=== PATIENT | female | born 1960 | race Caucasian/White ===

== ENCOUNTER → 2016-09-05 | Outpatient (CLI) | payer BC ==
[2016-09-05 19:43] LABS: ALT 37 U/L (9-52); AST 25 U/L (14-36); Alkaline Phosphatase 49 U/L (38-126); Anion Gap 10 mmol/L; Blood Urea Nitrogen 16 mg/dL (7-17); Calcium 10.2 mg/dL (8.4-10.2); Carbon Dioxide 25 mmol/L (22-30); Chloride 105 mmol/L (98-107); Cholesterol 155 mg/dL (<200); Glucose 95 mg/dL (74-99); HDL Cholesterol 45 mg/dL (40-60); Non-African American GFR(MDRD) >60 (>60 ml/min/1.73 sqM); Potassium 4.4 mmol/L (3.5-5.1); Sodium 140 mmol/L (137-145); Total Bilirubin 0.5 mg/dL (0.2-1.3); Total Protein 7.1 g/dL (6.3-8.2); Triglycerides 213 mg/dL (<150)
[2016-09-05 22:43] LABS: Basophils % (A) 1 %; CH 27.4; CHCM 32.5; Eosinophils # (A) 0.2 k/uL (0-0.7); Eosinophils % (A) 4 %; HCT 36.2 % (34.0-46.0); HDW 2.87; HGB 11.9 gm/dL (11.4-16.0); Luc # (Auto) 0.15; Luc % (Auto) 3; Lymphocytes # (A) 1.4 k/uL (1.0-4.8); Lymphocytes % (A) 29 %; MCV 84.7 fL (80.0-100.0); Monocytes # (A) 0.3 k/uL (0-1.0); Monocytes % (A) 6 %; Neutrophils # (A) 2.8 k/uL (1.3-7.7); Neutrophils % (A) 58 %; RBC 4.27 m/uL (3.80-5.40); RDW 13.9 % (11.5-15.5); WBC 4.9 k/uL (3.8-10.6); WBC (Perox) 5.37
== END ==
LOC: MMGSC 10:24
PROVIDERS: ATTEND Family Medicine
DX: E78.00 Pure hypercholesterolemia, unspecified (principal); I10 Essential (primary) hypertension
CPT/HCPCS: 36415; 80053; 80061; 84439; 84443; 85025

== ENCOUNTER → 2016-10-02 | Outpatient (CLI) | payer BC | LOC: MMGSC 16:17 | PROVIDERS: ATTEND Family Medicine | DX: F31.9 Bipolar disorder, unspecified (principal) | CPT/HCPCS: 36415; 80178 ==

== ENCOUNTER → 2016-11-11 | Outpatient (CLI) | payer BC | LOC: MMGSC 10:37 | PROVIDERS: ATTEND Family Medicine | DX: N39.0 Urinary tract infection, site not specified (principal) | CPT/HCPCS: 87077; 87086; 87186 ==

== ENCOUNTER → 2017-05-22 | Outpatient (CLI) | payer BC ==
[2017-05-24 15:40] LABS: C. trachomatis,PCR Negative (Neg,Equiv); Chlamydia trachomatis Source Genital; N. gonorrhoeae,PCR Negative (Neg,Equiv); Neisseria Source Genital
== END | disposition home or self-care (01) ==
LOC: MMGSC 13:45
PROVIDERS: ATTEND Family Medicine
DX: N39.0 Urinary tract infection, site not specified (principal); L29.0 Pruritus ani
CPT/HCPCS: 87070; 87086; 87205; 87252; 87491; 87496; 87498; 87529; 87591; 87798

== ENCOUNTER 2017-06-13 08:36 | Day surgery (SDC) | payer BC ==
[2017-06-12 09:20] VITALS: BMI 33.3
[~2017-06-13 08:36] MED LIST: LACTATED RINGERS 1,000 ML IV SCH
[2017-06-13 09:23] VITALS: RESP 16; TEMP 98.2
[2017-06-13] MEDS ORDERED: LIDOCAINE 1% 20 ML VIAL (10MG/ML) FOR IV START INTRADERMA ONE (09:40)
--- NOTE | 2017-06-13 10:40 | P.PCN ---
Date of Procedure: 06/13/17 Procedure(s) Performed: BRIEF HISTORY: Patient is a 57-year-old white female scheduled for an elective upper endoscopy as a part of evaluation of her GERD symptoms on and off for the last several months duration. For an PROCEDURE PERFORMED: Esophagogastroduodenoscopy with biopsy. PREOPERATIVE DIAGNOSIS: GERD of several months duration. IV sedation per anesthesia. PROCEDURE: After informed consent was obtained, the patient was brought into the endoscopy unit. IV sedation was administered by Anesthesia under continuous monitoring. Initially the Olympus GIF-140 video endoscope was inserted into the mouth. Esophagus intubated without any difficulty. It was gradually advanced into the stomach and duodenum and carefully examined. The bulb and the second part of the duodenum appeared normal. The scope at this time was withdrawn to the stomach, adequately insufflated with air, and upon careful examination, mucosa of the antrum, had scattered erosions and biopsies were done from this area. The body appeared normal. In the cardia of the stomach there was a 1.5 cm polyp noted and multiple biopsies were done from this area. The scope was then withdrawn into the esophagus. The GE junction was located at 39 cm from the incisors. The esophagus appeared normal. There were no erosions or ulcerations seen and the patient tolerated the procedure well. IMPRESSION: 1. 1.5 cm polyp in the cardia of the stomach status post multiple biopsies. 2. Mild antral gastritis. 3. No evidence of esophagitis or Caal's esophagus RECOMMENDATIONS: The findings of this examination were discussed with the patient as well as a family. She was advised to follow with the biopsy results. Basal biopsy results will plan a repeat upper endoscopy with the endoscopic polypectomy. She will be seen in office in 2 weeks..
[2017-06-13 10:47] VITALS: BP 104/58; PULSE 69
== END 2017-06-13 11:17 | disposition home or self-care (01) ==
LOC: ORWHC2ENDO 08:36
PROVIDERS: ATTEND Internal Medicine Gastroenterology
DX: K29.50 Unspecified chronic gastritis without bleeding (principal); K31.7 Polyp of stomach and duodenum; K21.9 Gastro-esophageal reflux disease without esophagitis; I10 Essential (primary) hypertension; E78.5 Hyperlipidemia, unspecified; G47.33 Obstructive sleep apnea (adult) (pediatric); G25.81 Restless legs syndrome; Z79.899 Other long term (current) drug therapy
CPT/HCPCS: 43239; 88305; 88342

== ENCOUNTER → 2017-06-18 | Outpatient (CLI) | payer BC | END | disposition home or self-care (01) | LOC: MMGSC 13:20 | PROVIDERS: ATTEND Family Medicine | DX: L29.0 Pruritus ani (principal) | CPT/HCPCS: 87172 ==

== ENCOUNTER 2017-12-28 14:52 | Inpatient (IN) | payer BC ==
[2017-12-28] MEDS ORDERED: NITROGLYCERIN OINT 1 INCH/GM PACKET TOPICAL STA (15:01)
[2017-12-28] MEDS ORDERED: NITROGLYCERIN SL TABS 0.4 MG TAB SUBLINGUAL STA (15:01)
[2017-12-28] MEDS ORDERED: ASPIRIN 81 MG PO STA (15:01)
--- NOTE | 2017-12-28 15:03 | ED ---
General Adult HPI - General Chief complaint: Chest Pain Stated complaint: Chest pain Time Seen by Provider: 12/28/17 14:55 Source: patient, RN notes reviewed Mode of arrival: wheelchair Limitations: no limitations - History of Present Illness Initial comments: This is a 57 old female with past medical history significant for high blood pressure bipolar and high cholesterol patient comes in today stating that she's been having intermittent chest pain over the last 3 weeks and the symptoms are worsening. Patient states they were initially short lived but today is been ongoing since 9:00 this morning. Patient states the pain radiates up to both sides of her neck and into her upper back. Patient states she's also short of breath diaphoretic and mildly nauseated. Patient denies any episodes of vomiting. Patient denies any abdominal pain patient denies any diarrhea recently. Patient denies any recent fever chills or cough. Patient denies headache patient denies any numbness or weakness. Patient denies any lightheadedness or dizziness. Patient denies any swelling to the legs or calf tenderness. Patient denies any smoking history - Related Data Home Medications Medication Instructions Recorded Confirmed LORazepam [Ativan] 0.5 mg PO BID 06/12/17 12/28/17 Lisinopril-Hctz 20-25 mg 1 tab PO DAILY 06/12/17 12/28/17 [Zestoretic 20-25] [place] Carbonate 300 mg PO BID 06/12/17 12/28/17 buPROPion HCL [Wellbutrin SR] 150 mg PO BID 06/12/17 12/28/17 rOPINIRole HCL [Requip] 1 mg PO HS 06/12/17 12/28/17 Fenofibrate Nanocrystallized 145 mg PO DAILY 12/28/17 12/28/17 [Fenofibrate] Iron(Unknown) 1 tab PO Q48H 12/28/17 12/28/17 Multivitamins, Thera [Multivitamin 1 tab PO DAILY 12/28/17 12/28/17 (formulary)] Verapamil HCl [Verapamil ER] 120 mg PO DAILY 12/28/17 12/28/17 Allergies Allergy/AdvReac Type Severity Reaction Status Date / Time No Known Allergies Allergy Verified 12/28/17 16:01 Review of Systems ROS Statement: Those systems with pertinent positive or pertinent negative responses have been documented in the HPI. ROS Other: All systems not noted in ROS Statement are negative. Past Medical History Past Medical History: GERD/Reflux, Hyperlipidemia, Hypertension, Sleep Apnea/ CPAP/BIPAP Additional Past Medical History / Comment(s): restless leg History of Any Multi-Drug Resistant Organisms: None Reported Past Surgical History: Back Surgery, Bladder Surgery, Tubal Ligation Additional Past Surgical History / Comment(s): bladder sling, colonoscopy Past Anesthesia/Blood Transfusion Reactions: No Reported Reaction Past Psychological History: Anxiety, Bipolar Smoking Status: Never smoker Past Alcohol Use History: None Reported Past Drug Use History: None Reported - Past Family History Mother Family Medical History: Cancer Additional Family Medical History / Comment(s): lung, colon Sister(s) Family Medical History: Cancer Additional Family Medical History / Comment(s): brain General Exam - General Exam Comments Initial Comments: GENERAL: Patient is well-developed and well-nourished. Patient is nontoxic and well- hydrated and is in mild distress. ENT: Neck is soft and supple. No significant lymphadenopathy is noted. Oropharynx is clear. Moist mucous membranes. EYES: The sclera were anicteric and conjunctiva were pink and moist. Extraocular movements were intact and pupils were equal round and reactive to light. Eyelids were unremarkable. PULMONARY: Unlabored respirations. Good breath sounds bilaterally. No audible rales rhonchi or wheezing was noted. CARDIOVASCULAR: There is a regular rate and rhythm without any murmurs gallops or rubs. ABDOMEN: Soft and nontender with normal bowel sounds. No palpable organomegaly was noted. There is no palpable pulsatile mass. SKIN: Skin is clear with no lesions or rashes and otherwise unremarkable. NEUROLOGIC: Patient is alert and oriented x3. Cranial nerves II through XII are grossly intact. Motor and sensory are also intact. Normal speech, volume and content. Symmetrical smile. MUSCULOSKELETAL: Normal extremities with adequate strength and full range of motion. No lower extremity swelling or edema. No calf tenderness. LYMPHATICS: No significant lymphadenopathy is noted PSYCHIATRIC: Normal psychiatric evaluation. Normal interpersonal interactions appears functionally intact in deals appropriately with others. No signs of depression. No signs of anxiety. Limitations: no limitations Course Vital Signs 12/28/17 12/28/17 12/28/17 14:54 15:13 15:30 Temperature 98.3 F Pulse Rate 89 84 77 Respiratory 18 16 16 Rate Blood Pressure 174/83 182/84 129/60 O2 Sat by Pulse 99 99 98 Oximetry Medical Decision Making - Medical Decision Making EKG shows normal sinus rhythm at 83 bpm DC interval is 138 QRS 92 QT interval is 380 QTC is 455. Patient's EKG shows no ST segment elevation or depression or T wave abnormalities are noted. Chest x-ray shows no acute normalities. Patient's troponin came back mildly elevated. started the patient heparin bolus and heparin drip. Spoke with Dr. Mcdonald she agreed to admit the patient admitted the patient a wrote admitting orders consult cardiology. I continued heparin and aspirin Nitropaste on the floor. - Lab Data Result diagrams: 12/28/17 15:08 12/28/17 15:08 Lab Results 12/28/17 12/28/17 12/28/17 Range/Units 15:08 15:08 15:08 WBC 4.4 (3.8-10.6) k/uL RBC 4.18 (3.80-5.40) m/uL Hgb 11.4 (11.4-16.0) gm/dL Hct 34.4 (34.0-46.0) % MCV 82.4 (80.0-100.0) fL MCH 27.4 (25.0-35.0) pg MCHC 33.2 (31.0-37.0) g/dL RDW 13.5 (11.5-15.5) % Plt Count 351 (150-450) k/uL Neutrophils % 61 % Lymphocytes % 25 % Monocytes % 8 % Eosinophils % 4 % Basophils % 1 % Neutrophils # 2.7 (1.3-7.7) k/uL Lymphocytes # 1.1 (1.0-4.8) k/uL Monocytes # 0.3 (0-1.0) k/uL Eosinophils # 0.2 (0-0.7) k/uL Basophils # 0.0 (0-0.2) k/uL PT (9.0-12.0) sec INR (<1.2) APTT (22.0-30.0) sec Sodium 141 (137-145) mmol/L Potassium 4.3 (3.5-5.1) mmol/L Chloride 110 H (98-107) mmol/L Carbon Dioxide 21 L (22-30) mmol/L Anion Gap 10 mmol/L BUN 13 (7-17) mg/dL Creatinine 0.91 (0.52-1.04) mg/dL Est GFR (CKD-EPI)AfAm 82 (>60 ml/min/1.73 sqM) Est GFR (CKD-EPI)NonAf 71 (>60 ml/min/1.73 sqM) Glucose 172 H (74-99) mg/dL Calcium 9.9 (8.4-10.2) mg/dL Magnesium 1.8 (1.6-2.3) mg/dL Total Bilirubin 0.2 (0.2-1.3) mg/dL AST 34 (14-36) U/L ALT 36 (9-52) U/L Alkaline Phosphatase 44 (38-126) U/L Total Creatine Kinase 128 (30-135) U/L CK-MB (CK-2) 2.7 H* (0.0-2.4) ng/mL CK-MB (CK-2) Rel Index 2.1 Troponin I 0.057 H* (0.000-0.034) ng/mL Total Protein 6.5 (6.3-8.2) g/dL Albumin 4.2 (3.5-5.0) g/dL [place] 0.3 mmol/L 12/28/17 Range/Units 15:08 WBC (3.8-10.6) k/uL RBC (3.80-5.40) m/uL Hgb (11.4-16.0) gm/dL Hct (34.0-46.0) % MCV (80.0-100.0) fL MCH (25.0-35.0) pg MCHC (31.0-37.0) g/dL RDW (11.5-15.5) % Plt Count (150-450) k/uL Neutrophils % % Lymphocytes % % Monocytes % % Eosinophils % % Basophils % % Neutrophils # (1.3-7.7) k/uL Lymphocytes # (1.0-4.8) k/uL Monocytes # (0-1.0) k/uL Eosinophils # (0-0.7) k/uL Basophils # (0-0.2) k/uL PT 10.3 (9.0-12.0) sec INR 1.1 (<1.2) APTT 23.3 (22.0-30.0) sec Sodium (137-145) mmol/L Potassium (3.5-5.1) mmol/L Chloride (98-107) mmol/L Carbon Dioxide (22-30) mmol/L Anion Gap mmol/L BUN (7-17) mg/dL Creatinine (0.52-1.04) mg/dL Est GFR (CKD-EPI)AfAm (>60 ml/min/1.73 sqM) Est GFR (CKD-EPI)NonAf (>60 ml/min/1.73 sqM) Glucose (74-99) mg/dL Calcium (8.4-10.2) mg/dL Magnesium (1.6-2.3) mg/dL Total Bilirubin (0.2-1.3) mg/dL AST (14-36) U/L ALT (9-52) U/L Alkaline Phosphatase (38-126) U/L Total Creatine Kinase (30-135) U/L CK-MB (CK-2) (0.0-2.4) ng/mL CK-MB (CK-2) Rel Index Troponin I (0.000-0.034) ng/mL Total Protein (6.3-8.2) g/dL Albumin (3.5-5.0) g/dL [place] mmol/L Critical Care Time Critical Care Time: Yes Total Critical Care Time: 35 Disposition Clinical Impression: Non-STEMI (non-ST elevated myocardial infarction) Disposition: ADMITTED IP TO THIS HOSP Referrals: Jaye Bloom MD [Primary Care Provider] - 1-2 days Time of Disposition: 16:09
[2017-12-28 15:15] LABS: Basophils % (A) 1 %; Eosinophils # (A) 0.2 k/uL (0-0.7); Eosinophils % (A) 4 %; HCT 34.4 % (34.0-46.0); HGB 11.4 gm/dL (11.4-16.0); Lymphocytes # (A) 1.1 k/uL (1.0-4.8); Lymphocytes % (A) 25 %; MCH 27.4 pg (25.0-35.0); MCHC 33.2 g/dL (31.0-37.0); MCV 82.4 fL (80.0-100.0); Mean Platelet Volume 7.2; Monocytes # (A) 0.3 k/uL (0-1.0); Monocytes % (A) 8 %; Neutrophils # (A) 2.7 k/uL (1.3-7.7); Neutrophils % (A) 61 %; Platelet Count 351 k/uL (150-450); RBC 4.18 m/uL (3.80-5.40); RDW 13.5 % (11.5-15.5); WBC 4.4 k/uL (3.8-10.6)
[2017-12-28 15:23] LABS: INR 1.1 (<1.2); Partial Thromboplastin Time 23.3 sec (22.0-30.0); Prothrombin Time 10.3 sec (9.0-12.0)
[2017-12-28 15:26] LABS: Albumin 4.2 g/dL (3.5-5.0); Calcium 9.9 mg/dL (8.4-10.2); Magnesium 1.8 mg/dL (1.6-2.3); Potassium 4.3 mmol/L (3.5-5.1); Total Bilirubin 0.2 mg/dL (0.2-1.3); Total Protein 6.5 g/dL (6.3-8.2)
[2017-12-28 15:32] LABS: Lithium 0.3 mmol/L
--- NOTE | 2017-12-28 15:37 | XR ---
EXAMINATION TYPE: XR chest 2V DATE OF EXAM: 12/28/2017 COMPARISON: NONE HISTORY: Intermittent chest pain and shortness of breath TECHNIQUE: Frontal and lateral views of the chest are obtained. FINDINGS: Very mild interstitial prominence is seen throughout and cardiac silhouette is upper limit s of normal. There is no focal air space opacity, pleural effusion, or pneumothorax seen. The cardia c silhouette size is within normal limits. The osseous structures are intact. IMPRESSION: Very mild interstitial prominence and upper limits of normal cardiac silhouette size. Fi ndings could relate to mild cardiogenic volume overload or atypical pneumonitis.
[2017-12-28] MEDS ORDERED: HEPARIN SODIUM,PORCINE 5,000 UNIT/ML 1 ML VIAL IV ONE (15:55)
[2017-12-28 16:04] LABS: Creatine Kinase MB 2.7 ng/mL (0.0-2.4); Troponin I 0.057 ng/mL (0.000-0.034)
[2017-12-28] MEDS ORDERED: NITROGLYCERIN SL TABS 0.4 MG TAB SUBLINGUAL PRN (16:13)
[2017-12-28] MEDS: HEPARIN SOD,PORK IN 0.45% NACL 25,000 UNIT in 0.45% NACL 1 500ML.BAG IV SCH (16:36)
--- NOTE | 2017-12-28 20:16 | P.HPIM ---
History of Present Illness H&P Date: 12/28/17 Chief Complaint: Chest pain The patient is a pleasant 57-year-old obese female with a past history of essential hypertension, hyperlipidemia, GERD with chronic gastritis, bipolar disorder and anxiety and RLS who presents to the ER with chief complaints of chest pain. Apparently the patient has been having symptoms of chest pain intermittently for the last 3 weeks, the patient initially attributed her discomfort to having a panic attack and subsequently to GERD but after taking her prescriptions without further relief the patient decided to seek help today. Today in particular the patient noted severe sharp substernal chest discomfort with radiation into the neck bilaterally and occipital area with associated diaphoresis nausea and shortness of air. She reported that her symptoms were relieved by rest. She denies any cough, fever chills or abdominal pain, she denies any lightheadedness presyncope palpitations or lower extremity swelling. In the ER the patient received a conference of workup including a EKG that was normal sinus rhythm with nonspecific ST-T wave abnormality, troponin was noted to be elevated at 0.057, she was started on aspirin and heparin drip and recommended for admission for non-ST elevation [place] Review of Systems Those systems with pertinent positive or pertinent negative responses have been documented in the HPI. ROS Other: All systems not noted in ROS Statement are negative. Past Medical History Past Medical History: GERD/Reflux, Hyperlipidemia, Hypertension, Sleep Apnea/ CPAP/BIPAP Additional Past Medical History / Comment(s): restless leg History of Any Multi-Drug Resistant Organisms: None Reported Past Surgical History: Back Surgery, Bladder Surgery, Tubal Ligation Additional Past Surgical History / Comment(s): bladder sling, colonoscopy Past Anesthesia/Blood Transfusion Reactions: No Reported Reaction Past Psychological History: Anxiety, Bipolar Smoking Status: Never smoker Past Alcohol Use History: None Reported Past Drug Use History: None Reported - Past Family History Mother Family Medical History: Cancer Additional Family Medical History / Comment(s): lung, colon Sister(s) Family Medical History: Cancer Additional Family Medical History / Comment(s): brain Medications and Allergies Home Medications Medication Instructions Recorded Confirmed Type LORazepam [Ativan] 0.5 mg PO TID 06/12/17 12/28/17 History Lisinopril-Hctz 20-25 mg 1 tab PO DAILY 06/12/17 12/28/17 History [Zestoretic 20-25] [place] Carbonate 300 mg PO BID 06/12/17 12/28/17 History buPROPion HCL [Wellbutrin SR] 150 mg PO BID 06/12/17 12/28/17 History rOPINIRole HCL [Requip] 1 mg PO HS 06/12/17 12/28/17 History Fenofibrate Nanocrystallized 145 mg PO DAILY 12/28/17 12/28/17 History [Fenofibrate] Iron(Unknown) 1 tab PO Q48H 12/28/17 12/28/17 History Multivitamins, Thera [Multivitamin 1 tab PO DAILY 12/28/17 12/28/17 History (formulary)] Verapamil HCl [Verapamil ER] 120 mg PO DAILY 12/28/17 12/28/17 History Allergies Allergy/AdvReac Type Severity Reaction Status Date / Time No Known Allergies Allergy Verified 12/28/17 16:01 Physical Exam Vitals: Vital Signs Temp Pulse Resp BP Pulse Ox 12/28/17 19:18 74 16 132/60 99 12/28/17 16:43 78 16 125/58 100 12/28/17 15:30 77 16 129/60 98 12/28/17 15:13 84 16 182/84 99 12/28/17 14:54 98.3 F 89 18 174/83 99 Intake and Output 12/28/17 12/28/17 12/28/17 06:59 14:59 22:59 Other: Weight 99.79 kg Constitutional: No acute distress, conversant, pleasant Eyes: Anicteric sclerae, moist conjunctiva, no lid-lag, PERRLA ENMT: NC/AT,Oropharynx clear, no erythema, exudates Neck:Supple, FROM, no masses, or JVD, No carotid bruits; No thyromegaly Lungs: Clear to auscultation, Clear to percussion, Normal respiratory effort, no accessory muscle use Cardiovascular: Heart regular in rate and rhythm, No murmurs, gallops, or rubs no peripheral edema Abdominal: Soft Nontender, nom distended, no guarding, no rebound or rigidity, Normoactive bowel sounds No hepatomegaly, No splenomegaly, No palpable mass No abdominal wall hernia noted Skin: Normal temperature, tone, texture, turgor, No induration No subcutaneous nodules, No rash, lesions, No ulcers Extremities:No digital cyanosis No clubbing, Pedal pulses intact and symmetrical Radial pulses intact and symmetrical Normal gait and station, No calf tenderness Psychiatric: Alert and oriented to person, place and time, Appropriate affect Intact judgement Neuro: Muscles Strength 5/5 in all 4 extremities, Sensation to light touch grossly present throughout, Cranial nerves II-XII grossly intact. No focal sensory deficits Results CBC & Chem 7: 18 15:08 12/28/17 15:08 Labs: Abnormal Lab Results - Last 24 Hours (Table) 12/28/17 12/28/17 Range/Units 15:08 15:08 Chloride 110 H (98-107) mmol/L Carbon Dioxide 21 L (22-30) mmol/L Glucose 172 H (74-99) mg/dL CK-MB (CK-2) 2.7 H* (0.0-2.4) ng/mL Troponin I 0.057 H* (0.000-0.034) ng/mL Assessment and Plan Assessment: Chronic medical conditions Bipolar disorder Anxiety GERD RLS CODE STATUS Full code (1) Non-STEMI (non-ST elevated myocardial infarction) Current Visit: Yes Status: Acute Code(s): I21.4 - NON-ST ELEVATION (NSTEMI) MYOCARDIAL INFARCTION SNOMED Code(s): 175078717 (2) Chest pain Current Visit: Yes Status: Acute Code(s): R07.9 - CHEST PAIN, UNSPECIFIED SNOMED Code(s): 18112729 (3) Hypertensive urgency Current Visit: Yes Status: Acute Code(s): I16.0 - HYPERTENSIVE URGENCY SNOMED Code(s): 423585950 (4) Dyslipidemia Current Visit: Yes Status: Acute Code(s): E78.5 - HYPERLIPIDEMIA, UNSPECIFIED SNOMED Code(s): 522325077 Plan: The patient is admitted anticipated greater than 2 midnight stay with chest pain and concern for non-ST elevation [place], with elevated initial troponin of 0.057, we'll plan to continue to cycle and trend sequential troponins. EKG did not show any suggestion of any acute ischemia. Patient was started on routine chest pain orders and given aspirin and started on heparin drip in the ER. Patient also noted to have elevated blood pressure possibly hypertensive urgency , hence I will start her on Coreg 6.25 mg by mouth twice a day, plan to resume her lisinopril dosage and also will start her on statin therapy with Lipitor tonight. Will order echocardiogram consult cardiology for further recommendations. The patient is resumed on her chronic psychotropic medications. We'll continue to follow her clinical course. As a patient is on heparin there is no need for DVT prophylaxis, the patient is continued on PPI therapy for her chronic GERD.
[2017-12-28 20:35] VITALS: BMI 34.9
[2017-12-28 21:26] LABS: Creatine Kinase MB 2.3 ng/mL (0.0-2.4)
[2017-12-28 21:29] LABS: Troponin I 0.16 ng/mL (0.000-0.034)
[2017-12-28] MEDS: NITROGLYCERIN OINT 1 INCH/GM PACKET TOPICAL SCH ×2 (21:30→23:20)
[2017-12-28] MEDS ORDERED: CARVEDILOL 6.25 MG TAB PO SCH (21:30)
[2017-12-28] MEDS: LITHIUM CARBONATE 300 MG CAP PO SCH (22:08)
[2017-12-28] MEDS: buPROPion SR 150 MG TABLET.ER PO SCH (22:08)
[2017-12-28] MEDS: LORazepam 0.5 MG TAB PO SCH (22:08)
[2017-12-28] MEDS: ATORVASTATIN 80 MG TAB PO SCH (22:08)
[2017-12-28] MEDS ORDERED: MORPHINE SULFATE 4 MG/ML SYRINGE IVP PRN (22:13)
[2017-12-28 23:51] LABS: Cholesterol 147 mg/dL (<200); HDL Cholesterol 49 mg/dL (40-60); LDL Cholesterol,Calculated 64 mg/dL (0-99); Triglycerides 169 mg/dL (<150)
[2017-12-29 04:27] LABS: Creatine Kinase MB 2.1 ng/mL (0.0-2.4)
[2017-12-29 04:31] LABS: Troponin I 0.181 ng/mL (0.000-0.034)
[2017-12-29 06:02] LABS: Glucose,Whole Blood 104 mg/dL (75-99)
[2017-12-29] MEDS: ACETAMINOPHEN TAB 325 MG TAB PO PRN ×2 (06:14→18:00)
[2017-12-29] MEDS: PANTOPRAZOLE 40 MG TABLET PO SCH (06:15)
[2017-12-29] MEDS: NITROGLYCERIN OINT 1 INCH/GM PACKET TOPICAL SCH ×3 (06:15→23:08)
[2017-12-29] MEDS: LISINOPRIL 20 MG TAB PO SCH (08:06)
[2017-12-29] MEDS: LITHIUM CARBONATE 300 MG CAP PO SCH ×2 (08:07→19:45)
[2017-12-29] MEDS: buPROPion SR 150 MG TABLET.ER PO SCH ×2 (08:07→19:44)
[2017-12-29] MEDS: MULTIVITAMINS, THERA 1 EACH TAB PO SCH (08:07)
[2017-12-29] MEDS: LORazepam 0.5 MG TAB PO SCH ×2 (08:10→19:43)
[2017-12-29] MEDS ORDERED: HEPARIN SODIUM,PORCINE 5,000 UNIT/ML 1 ML VIAL IV PRN (08:24)
[2017-12-29] MEDS ORDERED: SODIUM CHLORIDE 0.9% 1,000 ML in EMPTY BAG 1 BAG IV ONE (08:43)
[2017-12-29] MEDS ORDERED: NITROGLYCERIN SL TABS 0.4 MG TAB SUBLINGUAL PRN ×2 (08:43→11:37)
[2017-12-29] MEDS ORDERED: ASPIRIN 325 MG TAB PO STA (08:43)
[2017-12-29] MEDS ORDERED: ALPRAZolam 0.25 MG TAB PO PRN (08:43)
[2017-12-29] MEDS ORDERED: ALPRAZolam 0.5 MG TAB PO PRN (08:43)
[2017-12-29] MEDS ORDERED: ATORVASTATIN 80 MG TAB PO STA (08:43)
--- NOTE | 2017-12-29 08:49 | P.CRDCN ---
History of Present Illness Consult date: 12/29/17 Requesting physician: Dalia Mcdonald Consult reason: non-Q-wave RI Chief complaint: Chest pain History of present illness: This is a 57-year-old female with history of hypertension, bipolar disorder, anxiety, nonsmoker, no family history of premature coronary artery disease, nondiabetic, no prior documented hyperlipidemia, although she states she does have high triglycerides, who presents to the hospital with symptoms of chest pressure and heaviness. According to the patient, she states that she's been having symptoms off and on since the end of November, symptoms would come and go, she initially thought it may be some acid reflux. Patient starts in the midsternal chest area, radiates up both sides of her neck and through to her back, she does get mildly short of breath and diaphoretic and also experiences nausea. Symptoms would only last for brief episodes, until the past 3 or 4 days , they last much longer and are much more severe in intensity. For this reason she ultimately came to the hospital for further evaluation. Initial chest x- ray on admission here shows a normal sinus rhythm with no acute changes noted. Subsequent EKG performed this morning shows normal sinus rhythm with ST-T wave changes noted in the anterior lateral leads. Chest x-ray shows very mild interstitial prominence and upper limits of normal cardiac silhouette size heard findings could relate some mild cardiogenic volume overload or atypical pneumonitis. Blood pressure on arrival here 174/80 with a heart rate in the 80s , temperature 98.3 699% on room air. I pressure this morning 112/50 with a heart rate in the 80s, temperature 90.8, 98% on 2 L of oxygen. CBC is normal. Sodium 141, potassium 4.3, BUN 13, creatinine 0.9. Magnesium 1.8. Troponins 0.057, 0.160, 0.18. Patient was initiated on IV heparin in the emergency room, she is currently complaining of a mild ache in the center of her chest. Her home medications include Ativan, Requip, Wellbutrin, verapamil 120 daily, multivitamin, lithium, lisinopril hydrochlorothiazide, iron tablet, and fenofibrate. Medications here include aspirin 325 mg daily, Lipitor 80 mg daily , she was initiated on Coreg 6.25 mg twice a day in the emergency room, she is also on lisinopril 20 mg daily ,Nitropaste and IV heparin. Past Medical History Past Medical History: GERD/Reflux, Hyperlipidemia, Hypertension, Sleep Apnea/ CPAP/BIPAP Additional Past Medical History / Comment(s): restless leg History of Any Multi-Drug Resistant Organisms: None Reported Past Surgical History: Back Surgery, Bladder Surgery, Tubal Ligation Additional Past Surgical History / Comment(s): bladder sling, colonoscopy Past Anesthesia/Blood Transfusion Reactions: No Reported Reaction Past Psychological History: Anxiety, Bipolar Smoking Status: Never smoker Past Alcohol Use History: None Reported Past Drug Use History: None Reported - Past Family History Mother Family Medical History: Cancer Additional Family Medical History / Comment(s): lung, colon Sister(s) Family Medical History: Cancer Additional Family Medical History / Comment(s): brain Medications and Allergies Home Medications Medication Instructions Recorded Confirmed Type LORazepam [Ativan] 0.5 mg PO TID 06/12/17 12/28/17 History Lisinopril-Hctz 20-25 mg 1 tab PO DAILY 06/12/17 12/28/17 History [Zestoretic 20-25] [place] Carbonate 300 mg PO BID 06/12/17 12/28/17 History buPROPion HCL [Wellbutrin SR] 150 mg PO BID 06/12/17 12/28/17 History rOPINIRole HCL [Requip] 1 mg PO HS 06/12/17 12/28/17 History Fenofibrate Nanocrystallized 145 mg PO DAILY 12/28/17 12/28/17 History [Fenofibrate] Iron(Unknown) 1 tab PO Q48H 12/28/17 12/28/17 History Multivitamins, Thera [Multivitamin 1 tab PO DAILY 12/28/17 12/28/17 History (formulary)] Verapamil HCl [Verapamil ER] 120 mg PO DAILY 12/28/17 12/28/17 History Allergies Allergy/AdvReac Type Severity Reaction Status Date / Time No Known Allergies Allergy Verified 12/28/17 16:01 Physical Exam Vitals: Vital Signs Temp Pulse Pulse Resp BP BP Pulse Ox 12/29/17 04:00 98 F 82 18 113/53 98 12/29/17 00:00 98.4 F 79 18 128/60 97 12/28/17 20:30 98.4 F 72 18 175/70 97 12/28/17 19:18 74 16 132/60 99 12/28/17 16:43 78 16 125/58 100 12/28/17 15:30 77 16 129/60 98 12/28/17 15:13 84 16 182/84 99 12/28/17 14:54 98.3 F 89 18 174/83 99 Intake and Output 12/28/17 12/29/17 12/29/17 22:59 06:59 14:59 Intake Total 133.332 233.46 Output Total 1 Balance -1 133.332 233.46 Intake: Intake, IV Titration 133.332 233.46 Amount Heparin Sod,Pork in 0.45% 133.332 233.46 NaCl 25,000 unit In 0.45 % NaCl 1 500ml.bag @ 10 UNITS/KG/HR 19.95 mls/hr IV .Q24H [facility] Rx#: [id number] Output: Urine 1 Other: # Voids 1 Weight 98.2 kg 98.2 kg Results 12/28/17 15:08 12/28/17 15:08 Cardiac Enzymes 12/28/17 12/28/17 12/28/17 Range/Units 15:08 15:08 20:51 AST 34 (14-36) U/L CK-MB (CK-2) 2.7 H* 2.3 (0.0-2.4) ng/mL Troponin I 0.057 H* 0.160 H* (0.000-0.034) ng/mL 12/29/17 Range/Units 03:17 AST (14-36) U/L CK-MB (CK-2) 2.1 (0.0-2.4) ng/mL Troponin I 0.181 H* (0.000-0.034) ng/mL Coagulation 12/28/17 12/28/17 12/29/17 Range/Units 15:08 22:39 06:03 PT 10.3 (9.0-12.0) sec APTT 23.3 30.8 H 33.9 H (22.0-30.0) sec Lipids 12/28/17 Range/Units 15:08 Triglycerides 169 H (<150) mg/dL Cholesterol 147 (<200) mg/dL HDL Cholesterol 49 (40-60) mg/dL CBC 12/28/17 Range/Units 15:08 WBC 4.4 (3.8-10.6) k/uL RBC 4.18 (3.80-5.40) m/uL Hgb 11.4 (11.4-16.0) gm/dL Hct 34.4 (34.0-46.0) % Plt Count 351 (150-450) k/uL Comprehensive Metabolic Panel 12/28/17 Range/Units 15:08 Sodium 141 (137-145) mmol/L Potassium 4.3 (3.5-5.1) mmol/L Chloride 110 H (98-107) mmol/L Carbon Dioxide 21 L (22-30) mmol/L BUN 13 (7-17) mg/dL Creatinine 0.91 (0.52-1.04) mg/dL Glucose 172 H (74-99) mg/dL Calcium 9.9 (8.4-10.2) mg/dL AST 34 (14-36) U/L ALT 36 (9-52) U/L Alkaline Phosphatase 44 (38-126) U/L Total Protein 6.5 (6.3-8.2) g/dL Albumin 4.2 (3.5-5.0) g/dL Current Medications Generic Name Dose Route Start Last Admin Trade Name Freq PRN Reason Stop Dose Admin Acetaminophen 650 mg 12/28/17 22:11 12/29/17 06:14 Tylenol Tab PO 650 mg Q4HR PRN Administration MILD Pain Aspirin 325 mg 12/29/17 09:00 12/29/17 08:07 Aspirin PO 325 mg DAILY [facility] Administration Atorvastatin Calcium 80 mg 12/28/17 21:30 12/28/17 22:08 Lipitor PO 80 mg HS [facility] Administration Bupropion HCl 150 mg 12/28/17 22:00 12/29/17 08:07 Wellbutrin Sr PO 150 mg BID [facility] Administration Carvedilol 6.25 mg 12/28/17 21:30 12/28/17 22:08 Coreg PO 6.25 mg BID-W/MEALS [facility] Administration Heparin Sodium (Porcine) 0 unit 12/29/17 08:24 Heparin IV PER PROTOCOL PRN Low PTT Protocol Heparin Sodium/Sodium Chloride 500 mls @ 19.95 mls/hr 12/28/17 16:00 08:17 25,000 unit/ Sodium Chloride IV 16 units/kg/hr .Q24H [facility] 31.93 mls/hr Titration Protocol 10 UNITS/KG/HR Lisinopril 20 mg 12/29/17 09:00 12/29/17 08:06 Zestril PO 20 mg DAILY [facility] Administration [place] Carbonate 300 mg 12/28/17 22:00 12/29/17 08:07 [place] Carbonate PO 300 mg BID [facility] Administration Lorazepam 0.5 mg 12/28/17 22:00 12/29/17 08:10 Ativan PO 0.5 mg BID [facility] Administration Morphine Sulfate 4 mg 12/28/17 22:13 Morphine Sulfate (Inj) IVP Q4HR PRN MODERATE TO SEVERE Pain Multivitamins 1 each 12/29/17 12:00 12/29/17 08:07 Theragran PO 1 each DAILY@1200 [facility] Administration Nitroglycerin 1 inch 12/28/17 18:00 12/29/17 06:15 Nitro-Bid Oint TOPICAL 1 inch Q6HR [facility] Administration Nitroglycerin 0.4 mg 12/28/17 16:13 Nitrostat SUBLINGUAL Q5M PRN Chest Pain Pantoprazole Sodium 40 mg 12/29/17 07:30 12/29/17 06:15 Protonix PO 40 mg AC-BRKFST [facility] Administration Ropinirole HCl 1 mg 12/28/17 21:00 12/28/17 22:08 Requip PO 1 mg HS [facility] Administration Intake and Output 12/28/17 12/29/17 12/29/17 22:59 06:59 14:59 Intake Total 133.332 233.46 Output Total 1 Balance -1 133.332 233.46 Intake: Intake, IV Titration 133.332 233.46 Amount Heparin Sod,Pork in 0.45% 133.332 233.46 NaCl 25,000 unit In 0.45 % NaCl 1 500ml.bag @ 10 UNITS/KG/HR 19.95 mls/hr IV .Q24H [facility] Rx#: [id number] Output: Urine 1 Other: # Voids 1 Weight 98.2 kg 98.2 kg 12/28/17 15:08 12/28/17 15:08 EKG Interpretations (text) Initial EKG showed normal sinus rhythm with no acute changes subsequent EKG showed normal sinus rhythm with ST-T wave changes noted in the anterior lateral leads. Assessment and Plan Plan: Assessment and plan #1 non-ST elevation myocardial infarction #2 hypertension #3 bipolar and anxiety #4 GERD Plan We will obtain a stat echocardiogram with Doppler study. We will also decrease the dose of Coreg which was initiated to 3.125 mg twice a day, decrease lisinopril to 20 mg daily and continue aspirin, Lipitor, and IV heparin. Patient has been advised to undergo cardiac catheterization for more definitive diagnosis. The risks and benefits were explained to the patient in detail and she is willing to proceed. This will be performed today by Dr. Perez. Further recommendations will be based on the findings and the patient's clinical course. DNP note has been reviewed, I agree with a documented findings and plan of care. Patient was seen and examined.
[2017-12-29] MEDS ORDERED: ASPIRIN 325 MG TAB PO SCH (09:00)
[2017-12-29] MEDS ORDERED: IV FLUID CONTINUATION 500 ML IV ONE (09:35)
[2017-12-29] MEDS ORDERED: MIDAZOLAM 2 MG/2 ML VIAL ONE (09:36)
[2017-12-29] MEDS ORDERED: fentaNYL (PF) 50 MCG/ML 2 ML AMP ONE (09:36)
[2017-12-29] MEDS ORDERED: LIDOCAINE 1% INJ 10MG/ML (20 ML MDV) ONE (09:36)
[2017-12-29] MEDS: MIDAZOLAM 2 MG/2 ML VIAL IVP ONE ×2 (09:59→10:53)
[2017-12-29] MEDS ORDERED: fentaNYL (PF) 50 MCG/ML 2 ML AMP IVP ONE (09:59)
[2017-12-29] MEDS ORDERED: LIDOCAINE 1% (PF) 10MG/ML VIAL SQ ONE (10:04)
--- NOTE | 2017-12-29 10:28 | ECHOF ---
Referral Reason:NSTEMI MEASUREMENTS -------- HEIGHT: 165.1 cm WEIGHT: 68.0 kg BP: RVIDd: 2.1 cm (< 3.3) IVSd: 1.2 cm (0.6 - 1.1) LVIDd: 4.4 cm (3.9 - 5.3) LVPWd: 1.5 cm (0.6 - 1.1) IVSs: 1.8 cm LVIDs: 2.0 cm LVPWs: 2.0 cm Ao Diam: 2.8 cm (2.0 - 3.7) AV Cusp: 2.0 cm (1.5 - 2.6) LA Diam: 3.9 cm (2.7 - 3.8) MV EXCURSION: 12.842 mm (> 18.000) MV EF SLOPE: 101 mm/s (70 - 150) EPSS: 0.6 cm MV E Victor Manuel: 1.02 m/s MV DecT: 263 ms MV A Victor Manuel: 0.71 m/s MV E/A Ratio: 1.43 RAP: 5.00 mmHg RVSP: 18.36 mmHg FINDINGS -------- Sinus rhythm. This was a technically good study. The left ventricular size is normal. There is mild concentric left ventricular hypertrophy. Overa ll left ventricular systolic function is normal with, an EF between 55 - 60 %. The right ventricle is normal in size and function. The left atrium is normal in size. The right atrium is normal in size. The aortic valve is trileaflet, and appears structurally normal. No aortic stenosis or regurgitation. The mitral valve leaflets are mildly thickened. Moderate mitral regurgitation is present. Mild tricuspid regurgitation present. The right ventricular systolic pressure, as measured by Doppl er, is 18.36mmHg. Pulmonic valve appears structurally normal. The aortic root size is normal. Normal inferior vena cava with normal inspiratory collapse consistent with estimated right atrial pre ssure of 5 mmHg. There is a trivial pericardial effusion present. CONCLUSIONS -------- 1. Sinus rhythm. 2. This was a technically good study. 3. The left ventricular size is normal. 4. There is mild concentric left ventricular hypertrophy. 5. Overall left ventricular systolic function is normal with, an EF between 55 - 60 %. 6. The right ventricle is normal in size and function. 7. The left atrium is normal in size. 8. The right atrium is normal in size. 9. The aortic valve is trileaflet, and appears structurally normal. No aortic stenosis or regurgitati on. 10. The mitral valve leaflets are mildly thickened. 11. Moderate mitral regurgitation is present. 12. Mild tricuspid regurgitation present. 13. The right ventricular systolic pressure, as measured by Doppler, is 18.36mmHg. 14. Pulmonic valve appears structurally normal. 15. The aortic root size is normal. 16. Normal inferior vena cava with normal inspiratory collapse consistent with estimated right atrial pressure of 5 mmHg. 17. There is a trivial pericardial effusion present. TITLE SPECIALIST: Hilda Casiano RDCS
[2017-12-29] MEDS ORDERED: diphenhydrAMINE 50 MG/ML 1 ML VIAL ONE (10:50)
[2017-12-29] MEDS ORDERED: diphenhydrAMINE 50 MG/ML 1 ML VIAL IVP ONE (10:52)
[2017-12-29] MEDS ORDERED: BIVALIRUDIN BOLUS 250 MG/50 ML IV ONE (10:53)
[2017-12-29] MEDS ORDERED: BIVALIRUDIN 250 MG in SODIUM CHLORIDE 0.9% 50 ML IV ONE (10:54)
[2017-12-29] MEDS ORDERED: IOPAMIDOL-370 125ML BTL INJ ONE (11:00)
--- NOTE | 2017-12-29 11:03 | CC ---
CARDIAC CATHETERIZATION REPORT Mrs. Shay is a 57-year-old female, who was admitted with symptoms suggestive of a [id number] elevation myocardial infarction. The patient was advised cardiac catheterization for definitive diagnosis. PROCEDURE: The right groin was prepped and draped in the usual manner and the skin was infiltrated with 2% Xylocaine. The right femoral artery was entered using Seldinger technique and a 6-Thai sheath was placed in. Selective coronary angiography was then performed in multiple projections and the left ventricular pressures were obtained. The patient tolerated the procedure well. Sheath was left in place. Moderate sedation was use for 20 minutes. HEMODYNAMICS: Left ventricular end-diastolic pressure is 20 mmHg prior to angiography. No gradient is noted across the aortic valve. SELECTIVE CORONARY ANGIOGRAPHY: Left main coronary artery is normally patent. LAD is a good caliber vessel and proximally there is a 99% stenosis. The mid LAD has another area of 60%. Circumflex coronary artery is a good caliber blood vessel and is a good size obtuse marginal branch. Circumflex coronary artery and its branches are normal. Right coronary artery is dominant in distribution. Gives rise to the posterior descending and a good size PLV branch. Right coronary artery supplies collaterals to the LAD. FINAL IMPRESSION: This study reveals a 99% subtotal stenosis of proximal left anterior descending artery. Mid left anterior descending artery has another area of 60% stenosis. The right coronary artery and circumflex coronary arteries are normal. RECOMMENDATIONS: We will review the films with Dr. Valadez and consider stent to the LAD. MMODL / IJN: [id number] /
[2017-12-29] MEDS ORDERED: NITROGLYCERIN 1000MCG/10ML SYRINGE INTRACORON ONE (11:11)
[2017-12-29] MEDS ORDERED: CLOPIDOGREL 75 MG TAB ONE ×2 (11:15)
[2017-12-29] MEDS ORDERED: CLOPIDOGREL 75 MG TAB PO ONE (11:15)
[2017-12-29] MEDS ORDERED: MORPHINE SULFATE 4 MG/ML SYRINGE ONE (11:16)
[2017-12-29] MEDS ORDERED: MORPHINE SULFATE 4 MG/ML SYRINGE IVP ONE (11:18)
[2017-12-29] MEDS ORDERED: IOPAMIDOL-370 100ML BTL INJ ONE (11:19)
[2017-12-29] MEDS ORDERED: ATROPINE SULFATE 0.1 MG/ML 10ML SYRINGE IV PRN (11:37)
[2017-12-29] MEDS ORDERED: RX INFO: IV CONTRAST WAS GIVEN 1 EACH MISC MISCELLANE PRN (11:37)
[2017-12-29] MEDS ORDERED: MAG HYDROX/AL HYDROX/SIMETH 30 ML CUP PO PRN (11:37)
[2017-12-29] MEDS ORDERED: ZOLPIDEM 5 MG TAB PO PRN (11:37)
[2017-12-29 11:49] LABS: Glucose,Whole Blood 97 mg/dL (75-99)
--- NOTE | 2017-12-29 12:09 | PTCA ---
PERCUTANEOUSTRANS CORORONARY ANGIOGRAPHY DATE OF SERVICE: 12/29/2017 PROCEDURE: PTCA and stenting of proximal and mid LAD with drug-eluting stents. PERFORMED BY: Dr. Slime Valadez. Moderate conscious sedation time was 35 minutes. CLINICAL INFORMATION: Mrs. Chrystal Shay is a 57-year-old lady with history of obesity, hypertension, and hyperlipidemia, came into the hospital with a clinical picture of non-ST elevation [place] and was evaluated and underwent cardiac cath by Dr. Mary Perez which revealed 99% proximal LAD and a 70% to 80% mid LAD lesion and between the 2 lesions a good-sized diagonal branch came off, which had minor irregularities. She has no significant disease in other vessels and was advised intervention in the same setting. PROCEDURE NOTE: The existing 6-[place]ban[place] introducer in the right femoral artery was used to perform procedure. I used a standard left [place] guide catheter. I used an [employer] wire, which was a short straight wire, Turntrac flex wire. With this wire, I crossed the lesion. Predilatation was performed using a 2.5 caliber 12 mm Trek balloon of both lesions. The distal lesion was addressed with a 2.5 caliber 12 mm long Xience stent and proximal lesion was addressed with a 2.75 caliber 12 mm long Xience stent. Excellent angiographic result without complication was achieved. The sheath was taken out and a Perclose device used to secure hemostasis and patient was sent to the room in stable condition. Excellent angiographic result without complication was achieved and results were discussed with the patient and family. Good hemostasis was secured. MMODL / IJN: [id number] /
--- NOTE | 2017-12-29 12:15 | LTR ---
December 29, 2017 Re: Chrystal Shay Dear Dr. Rodriguez: Thank you for the opportunity to participate in the care of Mrs. Chrystal Shay. This lady presented with a [id number] [place] to the hospital. Dr. Mary Perez evaluated her and performed coronary angiography. I performed stenting of proximal and mid LAD with 2 drug-eluting stents. Excellent angiographic result was achieved. The patient should be on dual antiplatelet therapy without interruption for one year. Thank you for your referral and please call for questions. With kindest regards. Sincerely yours, MD BECCA ChanL / IJN: [id number] /
--- NOTE | 2017-12-29 14:55 | P.PN ---
Subjective Progress Note Date: 12/29/17 Principal diagnosis: Unstable angina patient was seen and examined. No acute events overnight. Patient underwent angioplasty in AM, received 2 stents. she currently denies chest pain, shortness of breath, cough, palpitations, dizziness. Complains of mild groin pain at the cath site. Looking forward to going home. Objective - Vital Signs Vital signs: Vital Signs Temp 98.3 F 12/29/17 08:00 Pulse 82 12/29/17 12:22 Resp 16 12/29/17 12:22 BP 114/58 12/29/17 12:22 Pulse Ox 97 12/29/17 12:22 Intake & Output 12/28/17 12/29/17 12/29/17 18:59 06:59 18:59 Intake Total 133.332 403.46 Output Total 1 Balance 132.332 403.46 Weight 99.79 kg 98.2 kg Intake: IV 170 Intake, IV Titration 133.332 233.46 Amount Heparin Sod,Pork in 0.45% 133.332 233.46 NaCl 25,000 unit In 0.45 % NaCl 1 500ml.bag @ 10 UNITS/KG/HR 19.95 mls/hr IV .Q24H [facility] Rx#: [id number] Output: Urine 1 Other: # Voids 1 - Exam General: [non toxic], [no distress], [appears at stated age] Derm: [warm], [dry] Head: [atraumatic], [normocephalic], [symmetric] Eyes: [EOMI], [no lid lag], [anicteric sclera] Mouth: [no lip lesion], [mucus membranes moist] Cardiovascular: [S1S2 reg], [no murmur] Lungs: [CTA bilateral], [no rhonchi, no rales] , [no accessory muscle use] Abdominal: [soft], [ nontender to palpation], [no guarding], [no appreciable organomegaly] Ext: [no gross muscle atrophy], [no edema], [no contractures] Groin: [No hematoma R side TTP] Neuro: [ CN II-XI grossly intact], [no focal neuro deficits] Psych: [Alert], [oriented], [appropriate affect] - Labs CBC & Chem 7: 12/28/17 15:08 08/12/18 15:08 Labs: Abnormal Lab Results - Last 24 Hours (Table) 12/28/17 12/28/17 12/28/17 Range/Units 15:08 15:08 15:08 APTT (22.0-30.0) sec Chloride 110 H (98-107) mmol/L Carbon Dioxide 21 L (22-30) mmol/L Glucose 172 H (74-99) mg/dL POC Glucose (mg/dL) (75-99) mg/dL CK-MB (CK-2) 2.7 H* (0.0-2.4) ng/mL Troponin I 0.057 H* (0.000-0.034) ng/mL Triglycerides 169 H (<150) mg/dL 12/28/17 12/28/17 12/29/17 Range/Units 20:51 22:39 03:17 APTT 30.8 H (22.0-30.0) sec Chloride (98-107) mmol/L Carbon Dioxide (22-30) mmol/L Glucose (74-99) mg/dL POC Glucose (mg/dL) (75-99) mg/dL CK-MB (CK-2) (0.0-2.4) ng/mL Troponin I 0.160 H* 0.181 H* (0.000-0.034) ng/mL Triglycerides (<150) mg/dL 12/29/17 12/29/17 Range/Units 06:01 06:03 APTT 33.9 H (22.0-30.0) sec Chloride (98-107) mmol/L Carbon Dioxide (22-30) mmol/L Glucose (74-99) mg/dL POC Glucose (mg/dL) 104 H (75-99) mg/dL CK-MB (CK-2) (0.0-2.4) ng/mL Troponin I (0.000-0.034) ng/mL Triglycerides (<150) mg/dL Assessment and Plan Assessment: Assessment and Plan 1. NSTEMI: Trop 0.05, 0.16, 0.18 EKG showing NSR. s/p cath and HIREN in proximal and mid LAD 12/29/2017. Echo shows EF 55-60% with mild LVH. Continue ASA 81 mg PO QD, Lipitor 80 mg PO QHS, Plavix 75 mg PO QD. Continue Coreg 6.25 mg PO BID and Lisinopril 20 mg PO QHS. Morphine PRN, Nitrostat PRN and Ropinirole for pain. Discussed with DEV OPS ENGINEER Mess, patient to be monitored overnight, likely DC tomorrow. Cardiac diet. Telemetry monitoring. Will check groin site in the AM. FU BMP for Cr in the AM, Cardiology 2. Mood disorder: Continue Bupropion 150 mg PO BID, [place] 300 mg PO BID, Ativan 0.5 mg PO TID. 3. DVT/GI Prophylaxis: Protonix 40 mg PO QD.
[2017-12-29 16:55] LABS: Glucose,Whole Blood 133 mg/dL (75-99)
[2017-12-29] MEDS ORDERED: CARVEDILOL 3.125 MG TAB PO SCH (17:30)
[2017-12-29] MEDS: HEPARIN SOD,PORK IN 0.45% NACL 25,000 UNIT in 0.45% NACL 1 500ML.BAG IV SCH (17:46)
[2017-12-29] MEDS: SODIUM CHLORIDE 0.9% 1,000 ML IV SCH (17:46)
[2017-12-29] MEDS: CARVEDILOL 6.25 MG TAB PO SCH (18:54)
[2017-12-29] MEDS: ATORVASTATIN 80 MG TAB PO SCH (19:44)
[2017-12-30] MEDS: SODIUM CHLORIDE 0.9% 1,000 ML IV SCH (02:53)
[2017-12-30] MEDS: ACETAMINOPHEN TAB 325 MG TAB PO PRN ×3 (03:13→22:24)
[2017-12-30] MEDS: NITROGLYCERIN OINT 1 INCH/GM PACKET TOPICAL SCH ×4 (05:50→23:58)
[2017-12-30] MEDS: CARVEDILOL 6.25 MG TAB PO SCH ×2 (06:13→15:42)
[2017-12-30] MEDS: PANTOPRAZOLE 40 MG TABLET PO SCH (06:13)
[2017-12-30 06:21] LABS: Basophils % (A) 0 %; Eosinophils # (A) 0.2 k/uL (0-0.7); Eosinophils % (A) 4 %; HCT 29.6 % (34.0-46.0); HGB 9.9 gm/dL (11.4-16.0); Lymphocytes # (A) 1.3 k/uL (1.0-4.8); Lymphocytes % (A) 25 %; MCH 28.1 pg (25.0-35.0); MCHC 33.4 g/dL (31.0-37.0); MCV 84.1 fL (80.0-100.0); Mean Platelet Volume 7.2; Monocytes # (A) 0.4 k/uL (0-1.0); Monocytes % (A) 7 %; Neutrophils # (A) 3.2 k/uL (1.3-7.7); Neutrophils % (A) 62 %; Platelet Count 303 k/uL (150-450); RBC 3.51 m/uL (3.80-5.40); RDW 13.6 % (11.5-15.5); WBC 5.2 k/uL (3.8-10.6)
[2017-12-30 06:30] LABS: Calcium 9.2 mg/dL (8.4-10.2); Potassium 3.9 mmol/L (3.5-5.1)
--- NOTE | 2017-12-30 09:49 | P.PN ---
Subjective Progress Note Date: 12/30/17 Principal diagnosis: NSTEMI Patient seen and examined. No acute events overnight. No chest pain, shortness of breath, palpitations. Looking forward to going home. Objective - Vital Signs Vital signs: Vital Signs Temp 98.4 F 12/30/17 03:20 Pulse 84 12/30/17 03:20 Resp 16 12/30/17 03:20 BP 115/50 12/30/17 03:20 Pulse Ox 97 12/30/17 03:20 Intake & Output 12/29/17 12/30/17 12/30/17 18:59 06:59 18:59 Intake Total 703.46 Balance 703.46 Weight 98.2 kg 98.4 kg Intake: IV 170 Intake, IV Titration 233.46 Amount Heparin Sod,Pork in 0.45% 233.46 NaCl 25,000 unit In 0.45 % NaCl 1 500ml.bag @ 10 UNITS/KG/HR 19.95 mls/hr IV .Q24H [facility] Rx#: [id number] Oral 300 Other: # Voids 1 1 - Exam General: [non toxic], [no distress], [appears at stated age] Derm: [warm], [dry] Head: [atraumatic], [normocephalic], [symmetric] Eyes: [EOMI], [no lid lag], [anicteric sclera] Mouth: [no lip lesion], [mucus membranes moist] Cardiovascular: [S1S2 reg], [no murmur] Lungs: [CTA bilateral], [no rhonchi, no rales] , [no accessory muscle use] Abdominal: [soft], [ nontender to palpation], [no guarding], [no appreciable organomegaly] Ext: [no gross muscle atrophy], [no edema], [no contractures] Groin: [No hematoma R side non tender] Neuro: [ CN II-XI grossly intact], [no focal neuro deficits] Psych: [Alert], [oriented], [appropriate affect] - Labs CBC & Chem 7: 12/30/17 05:33 12/30/17 05:33 Labs: Abnormal Lab Results - Last 24 Hours (Table) 12/29/17 12/30/17 12/30/17 Range/Units 16:50 05:33 05:33 RBC 3.51 L (3.80-5.40) m/uL Hgb 9.9 L D (11.4-16.0) gm/dL Hct 29.6 L (34.0-46.0) % Chloride 108 H (98-107) mmol/L Creatinine 1.10 H (0.52-1.04) mg/dL Glucose 113 H (74-99) mg/dL POC Glucose (mg/dL) 133 H (75-99) mg/dL Assessment and Plan Assessment: Assessment and Plan 1. NSTEMI: Trop 0.05, 0.16, 0.18 EKG showing NSR. s/p cath and HIREN in proximal and mid LAD 12/29/2017. Echo shows EF 55-60% with mild LVH. Continue ASA 81 mg PO QD, Lipitor 80 mg PO QHS, Plavix 75 mg PO QD. Continue Coreg 6.25 mg PO BID and Lisinopril 20 mg PO QHS. Morphine PRN, Nitrostat PRN and Ropinirole for pain. Cardiac diet. Telemetry monitoring. FU Cardiology 2. JEWEL: Cr 1.10. Likely contrast induced. Encourage PO hydration. 3. Anemia: Hg 9.9 Hct 29.6 MCV 84.1 dropped from Hg 11.4 on admission. Likely dilutional, received 1L IVF last night. Cath site looks clean. Monitor. 4. Mood disorder: Continue Bupropion 150 mg PO BID, [place] 300 mg PO BID, Ativan 0.5 mg PO TID. 5. DVT/GI Prophylaxis: Protonix 40 mg PO QD.
[2017-12-30] MEDS ORDERED: CLOPIDOGREL 75 MG TAB PO SCH (11:38)
[2017-12-30 11:58] LABS: HCT 29.5 % (34.0-46.0); HGB 10.2 gm/dL (11.4-16.0); MCH 28.8 pg (25.0-35.0); MCHC 34.5 g/dL (31.0-37.0); MCV 83.2 fL (80.0-100.0); Mean Platelet Volume 6.6; Platelet Count 308 k/uL (150-450); RBC 3.54 m/uL (3.80-5.40); RDW 13.6 % (11.5-15.5); WBC 5.6 k/uL (3.8-10.6)
[2017-12-30] MEDS: LORazepam 0.5 MG TAB PO SCH ×2 (12:05→19:54)
[2017-12-30] MEDS: LITHIUM CARBONATE 300 MG CAP PO SCH ×2 (12:05→19:56)
[2017-12-30] MEDS: LISINOPRIL 20 MG TAB PO SCH (12:05)
[2017-12-30] MEDS: ASPIRIN 81 MG PO SCH (12:06)
[2017-12-30] MEDS: MULTIVITAMINS, THERA 1 EACH TAB PO SCH (12:06)
[2017-12-30] MEDS: buPROPion SR 150 MG TABLET.ER PO SCH ×2 (12:06→19:56)
[2017-12-30] MEDS: HEPARIN SOD,PORK IN 0.45% NACL 25,000 UNIT in 0.45% NACL 1 500ML.BAG IV SCH (14:51)
--- NOTE | 2017-12-30 15:25 | P.PN ---
Subjective Progress Note Date: 12/30/17 This is a 57-year-old female with history of hypertension, bipolar disorder, anxiety, nonsmoker, no family history of premature coronary artery disease, nondiabetic, no prior documented hyperlipidemia, although she states she does have high triglycerides, who presents to the hospital with symptoms of chest pressure and heaviness. According to the patient, she states that she's been having symptoms off and on since the end of November, symptoms would come and go, she initially thought it may be some acid reflux. Patient starts in the midsternal chest area, radiates up both sides of her neck and through to her back, she does get mildly short of breath and diaphoretic and also experiences nausea. Symptoms would only last for brief episodes, until the past 3 or 4 days , they last much longer and are much more severe in intensity. For this reason she ultimately came to the hospital for further evaluation. Initial chest x- ray on admission here shows a normal sinus rhythm with no acute changes noted. Subsequent EKG performed this morning shows normal sinus rhythm with ST-T wave changes noted in the anterior lateral leads. Chest x-ray shows very mild interstitial prominence and upper limits of normal cardiac silhouette size heard findings could relate some mild cardiogenic volume overload or atypical pneumonitis. Blood pressure on arrival here 174/80 with a heart rate in the 80s , temperature 98.3 699% on room air. I pressure this morning 112/50 with a heart rate in the 80s, temperature 90.8, 98% on 2 L of oxygen. CBC is normal. Sodium 141, potassium 4.3, BUN 13, creatinine 0.9. Magnesium 1.8. Troponins 0.057, 0.160, 0.18. Patient was initiated on IV heparin in the emergency room, she is currently complaining of a mild ache in the center of her chest. Her home medications include Ativan, Requip, Wellbutrin, verapamil 120 daily, multivitamin, lithium, lisinopril hydrochlorothiazide, iron tablet, and fenofibrate. Medications here include aspirin 325 mg daily, Lipitor 80 mg daily , she was initiated on Coreg 6.25 mg twice a day in the emergency room, she is also on lisinopril 20 mg daily ,Nitropaste and IV heparin. 12/30/2017 Patient seen and examined this morning, feeling well, denies any chest pain or difficulty in breathing. Patient was taken to the cardiac catheterization lab yesterday where she underwent PTCA and stenting of the proximal and mid lesion in the LAD. EKG from this morning shows a sinus bradycardia with no acute changes since PCI, hemodynamically she is stable. Hemoglobin this morning 9.9, platelet count 303, hemoglobin was repeated came back to be 10.2. Sodium 137, potassium 3.9, BUN 12, creatinine 1.1. We will discontinue the patient's Plavix today and start her on Brilinta 90 mg twice a day along with a baby aspirin. Continue to monitor the patient for 24 hours Objective - Vital Signs Vital signs: Vital Signs Temp 98.4 F 12/30/17 08:00 Pulse 80 12/30/17 12:00 Resp 16 12/30/17 12:00 BP 131/58 12/30/17 12:00 Pulse Ox 97 12/30/17 12:00 Intake & Output 12/29/17 12/30/17 12/30/17 18:59 06:59 18:59 Intake Total 703.46 100 Balance 703.46 100 Weight 98.2 kg 98.4 kg Intake: IV 170 Intake, IV Titration 233.46 Amount Heparin Sod,Pork in 0.45% 233.46 NaCl 25,000 unit In 0.45 % NaCl 1 500ml.bag @ 10 UNITS/KG/HR 19.95 mls/hr IV .Q24H LAURA Rx#: [id number] Oral 300 100 Other: # Voids 1 1 - Exam PHYSICAL EXAMINATION: GENERAL: 57-year-old female in no acute distress at the time of my examination HEENT: Head is atraumatic, normocephalic. Pupils equal, round. Sclera anicteric. Conjunctiva are clear. Mucous membranes of the mouth are moist. Neck is supple. There is no elevated jugular venous pressure.] bruit is heard. HEART EXAMINATION: Heart S1, S2 normal. No murmur or gallop heard. CHEST EXAMINATION: Lungs are clear to auscultation and precussion. No chest wall tenderness is noted on palpation or with deep breathing. ABDOMEN: Soft, nontender. Bowel sounds are heard. No organomegaly noted. Right groin soft, no evidence of any hematoma. EXTREMITIES: 2+ peripheral pulses with no evidence of peripheral edema and no calf tenderness noted. NEUROLOGIC patient is awake, alert and oriented ?-3. . - Labs CBC & Chem 7: 12/30/17 11:40 12/30/17 05:33 Labs: Abnormal Lab Results - Last 24 Hours (Table) 12/29/17 12/30/17 12/30/17 Range/Units 16:50 05:33 05:33 RBC 3.51 L (3.80-5.40) m/uL Hgb 9.9 L D (11.4-16.0) gm/dL Hct 29.6 L (34.0-46.0) % Chloride 108 H (98-107) mmol/L Creatinine 1.10 H (0.52-1.04) mg/dL Glucose 113 H (74-99) mg/dL POC Glucose (mg/dL) 133 H (75-99) mg/dL 12/30/17 Range/Units 11:40 RBC 3.54 L (3.80-5.40) m/uL Hgb 10.2 L (11.4-16.0) gm/dL Hct 29.5 L (34.0-46.0) % Chloride (98-107) mmol/L Creatinine (0.52-1.04) mg/dL Glucose (74-99) mg/dL POC Glucose (mg/dL) (75-99) mg/dL Assessment and Plan Plan: Assessment and plan #1 non-ST elevation myocardial infarction, status post angioplasty and stenting of 2 lesions in the LAD #2 hypertension #3 bipolar and anxiety #4 GERD Plan Echocardiogram with Doppler study was performed which revealed an ejection fraction of 55-60%, moderate mitral regurgitation. We will discontinue the Plavix today and start the patient on Brilinta 90 mg one tablet by mouth twice a day. Continue to monitor for 24 hours. We will repeat a CBC in the morning as well. DNP note has been reviewed, I agree with a documented findings and plan of care. Patient was seen and examined.
[2017-12-30] MEDS: TICAGRELOR 90 MG TAB PO SCH (19:55)
[2017-12-31] MEDS: NITROGLYCERIN OINT 1 INCH/GM PACKET TOPICAL SCH (05:10)
[2017-12-31] MEDS: PANTOPRAZOLE 40 MG TABLET PO SCH (06:41)
[2017-12-31] MEDS: CARVEDILOL 6.25 MG TAB PO SCH (06:41)
[2017-12-31] MEDS: LISINOPRIL 20 MG TAB PO SCH (07:45)
[2017-12-31] MEDS: buPROPion SR 150 MG TABLET.ER PO SCH (07:45)
[2017-12-31] MEDS: LITHIUM CARBONATE 300 MG CAP PO SCH (07:45)
[2017-12-31] MEDS: TICAGRELOR 90 MG TAB PO SCH (07:45)
[2017-12-31] MEDS: MULTIVITAMINS, THERA 1 EACH TAB PO SCH (07:45)
[2017-12-31] MEDS: ASPIRIN 81 MG PO SCH (07:45)
[2017-12-31] MEDS: LORazepam 0.5 MG TAB PO SCH (07:47)
[2017-12-31 07:52] VITALS: BP 121/59; PULSE 77; RESP 18; TEMP 98.2
[2017-12-31 08:38] LABS: HCT 33.5 % (34.0-46.0); HGB 10.9 gm/dL (11.4-16.0); MCH 27.9 pg (25.0-35.0); MCHC 32.4 g/dL (31.0-37.0); Platelet Count 320 k/uL (150-450); RBC 3.89 m/uL (3.80-5.40); RDW 13.6 % (11.5-15.5); WBC 6.2 k/uL (3.8-10.6)
[2017-12-31 08:50] LABS: Calcium 9.8 mg/dL (8.4-10.2); Potassium 4.3 mmol/L (3.5-5.1)
--- NOTE | 2017-12-31 10:08 | P.DS ---
Providers Date of admission: 12/28/17 16:13 Expected date of discharge: 12/31/17 Attending physician: Dalia Mcdonald, DO Consults: 12/28/17 16:13 Consult Physician Urgent Consulting Provider: Maria Del [employer] Consult Reason/Comments: Non-STEMI Do you want consulting provider notified?: Yes 12/29/17 11:37 Consult Physician Routine Consulting Provider: Maria Del [employer] Consult Reason/Comments: Post Interventional patient Do you want consulting provider notified?: Already Contacted Primary care physician: Jaye Bloom - Discharge Diagnosis(es) (1) Anemia Current Visit: Yes Status: Acute (2) Mood disorder Current Visit: Yes Status: Acute (3) Non-STEMI (non-ST elevated myocardial infarction) Current Visit: Yes Status: Acute Hospital Course: Patient is a 57-year-old female with past medical history hypertension, hyperlipidemia, GERD, bipolar disorder and anxiety who presented to the ED for chest pain. Patient reported the chest pain to be sharp severe and sharp, substernal, with radiation to the neck associated with diaphoresis, nausea and shortness of breath. In the ED, EKG showed normal sinus rhythm with nonspecific ST and T-wave changes, troponin was elevated at 0.057. Patient started on an aspirin and heparin drip and admitted to the floor for further workup For her and STEMI, troponins were trended. Troponins were 0.05, 0.16, 0.18. She underwent cath and drug-eluting stent was placed in her proximal and mid LAD on 12/29/2017. Echocardiogram was obtained and showed EF of 55-60% with mild LVH. She was continued on aspirin 81 mg by mouth daily, Lipitor 80 mg by mouth at bedtime, Plavix 75 mg by mouth daily. Plavix was then discontinued and replaced with Brilinta. Patient was started on Coreg 6.25 mg by mouth twice a day and lisinopril 20 mg by mouth at night. Her creatinine was monitored for 2 days after the angiogram. Her creatinine was initially elevated to 1.10 resolved at the time of discharge. Patient was found to have anemia after her catheterization. Her hemoglobin was 9.9 with a hematocrit of 29.6 which dropped from 11.4 on admission. His thought to be due to dilution she received 1 L of saline overnight. Her hemoglobin was trended and remained stable at 10.2 and 10.9. Patient was seen and examined at the time of discharge. She has no complaints. She denies chest pain, shortness of breath, dizziness, palpitations. General: [non toxic], [no distress], [appears at stated age] Derm: [warm], [dry] Head: [atraumatic], [normocephalic], [symmetric] Eyes: [EOMI], [no lid lag], [anicteric sclera] Mouth: [no lip lesion], [mucus membranes moist] Cardiovascular: [S1S2 reg], [no murmur] Lungs: [CTA bilateral], [no rhonchi, no rales] , [no accessory muscle use] Abdominal: [soft], [ nontender to palpation], [no guarding], [no appreciable organomegaly] Ext: [no gross muscle atrophy], [no edema], [no contractures] Groin: [No hematoma R side non tender] Neuro: [ CN II-XI grossly intact], [no focal neuro deficits] Psych: [Alert], [oriented], [appropriate affect] This complex discharge greater than 30 minutes. Pertinent Studies: Cardiac catheterization Echocardiogram Procedures: Cardiac catheterization Patient Condition at Discharge: Stable Plan - Discharge Summary Discharge Rx Participant: No New Discharge Prescriptions: New Aspirin 81 mg PO DAILY #30 chew Atorvastatin [Lipitor] 80 mg PO HS #30 tab Carvedilol [Coreg] 6.25 mg PO BID-W/MEALS #60 tab Lisinopril [Zestril] 20 mg PO DAILY #30 tab Nitroglycerin Sl Tabs [Nitrostat] 0.4 mg SUBLINGUAL Q5M PRN #30 tab PRN Reason: Chest Pain Ticagrelor [Brilinta] 90 mg PO BID #60 tab Continue rOPINIRole HCL [Requip] 1 mg PO HS LORazepam [Ativan] 0.5 mg PO TID buPROPion HCL [Wellbutrin SR] 150 mg PO BID [place] Carbonate 300 mg PO BID Multivitamins, Thera [Multivitamin (formulary)] 1 tab PO DAILY Fenofibrate Nanocrystallized [Fenofibrate] 145 mg PO DAILY Iron(Unknown) 1 tab PO Q48H Discontinued Lisinopril-Hctz 20-25 mg [Zestoretic 20-25] 1 tab PO DAILY Verapamil HCl [Verapamil ER] 120 mg PO DAILY Discharge Medication List LORazepam [Ativan] 0.5 mg PO TID 06/12/17 [History] [place] Carbonate 300 mg PO BID 06/12/17 [History] buPROPion HCL [Wellbutrin SR] 150 mg PO BID 06/12/17 [History] rOPINIRole HCL [Requip] 1 mg PO HS 06/12/17 [History] Fenofibrate Nanocrystallized [Fenofibrate] 145 mg PO DAILY 12/28/17 [History] Iron(Unknown) 1 tab PO Q48H 12/28/17 [History] Multivitamins, Thera [Multivitamin (formulary)] 1 tab PO DAILY 12/28/17 [History ] Aspirin 81 mg PO DAILY #30 chew 12/31/17 [Rx] Atorvastatin [Lipitor] 80 mg PO HS #30 tab 12/31/17 [Rx] Carvedilol [Coreg] 6.25 mg PO BID-W/MEALS #60 tab 12/31/17 [Rx] Lisinopril [Zestril] 20 mg PO DAILY #30 tab 12/31/17 [Rx] Nitroglycerin Sl Tabs [Nitrostat] 0.4 mg SUBLINGUAL Q5M PRN #30 tab 12/31/17 [Rx ] Ticagrelor [Brilinta] 90 mg PO BID #60 tab 12/31/17 [Rx] Follow up Appointment(s)/Referral(s): Jaye Bloom MD [Primary Care Provider] - 01/05/18 11:00 am (Friday) Ken Perez MD [STAFF PHYSICIAN] - 1 Week (Office will call with follow up appointment.) Patient Instructions/Handouts: *[facility] - After Heart Catheterization - Accounts Receivable Representative Instructions, Heart Healthy Diet (DC), Coronary Intravascular Stent Placement (DC) Activity/Diet/Wound Care/Special Instructions: Cardiology holding patient until 12/31 Please take all medications as advised Please follow-up with her primary care provider within 1-2 days of discharge. Please follow-up with your end user support specialist Dr. Perez within 1 week of discharge. Discharge Disposition: HOME SELF-CARE
--- NOTE | 2017-12-31 12:53 | P.PN ---
Subjective Progress Note Date: 12/31/17 This is a 57-year-old female with history of hypertension, bipolar disorder, anxiety, nonsmoker, no family history of premature coronary artery disease, nondiabetic, no prior documented hyperlipidemia, although she states she does have high triglycerides, who presents to the hospital with symptoms of chest pressure and heaviness. According to the patient, she states that she's been having symptoms off and on since the end of November, symptoms would come and go, she initially thought it may be some acid reflux. Patient starts in the midsternal chest area, radiates up both sides of her neck and through to her back, she does get mildly short of breath and diaphoretic and also experiences nausea. Symptoms would only last for brief episodes, until the past 3 or 4 days , they last much longer and are much more severe in intensity. For this reason she ultimately came to the hospital for further evaluation. Initial chest x- ray on admission here shows a normal sinus rhythm with no acute changes noted. Subsequent EKG performed this morning shows normal sinus rhythm with ST-T wave changes noted in the anterior lateral leads. Chest x-ray shows very mild interstitial prominence and upper limits of normal cardiac silhouette size heard findings could relate some mild cardiogenic volume overload or atypical pneumonitis. Blood pressure on arrival here 174/80 with a heart rate in the 80s , temperature 98.3 699% on room air. I pressure this morning 112/50 with a heart rate in the 80s, temperature 90.8, 98% on 2 L of oxygen. CBC is normal. Sodium 141, potassium 4.3, BUN 13, creatinine 0.9. Magnesium 1.8. Troponins 0.057, 0.160, 0.18. Patient was initiated on IV heparin in the emergency room, she is currently complaining of a mild ache in the center of her chest. Her home medications include Ativan, Requip, Wellbutrin, verapamil 120 daily, multivitamin, lithium, lisinopril hydrochlorothiazide, iron tablet, and fenofibrate. Medications here include aspirin 325 mg daily, Lipitor 80 mg daily , she was initiated on Coreg 6.25 mg twice a day in the emergency room, she is also on lisinopril 20 mg daily ,Nitropaste and IV heparin. 12/30/2017 Patient seen and examined this morning, feeling well, denies any chest pain or difficulty in breathing. Patient was taken to the cardiac catheterization lab yesterday where she underwent PTCA and stenting of the proximal and mid lesion in the LAD. EKG from this morning shows a sinus bradycardia with no acute changes since PCI, hemodynamically she is stable. Hemoglobin this morning 9.9, platelet count 303, hemoglobin was repeated came back to be 10.2. Sodium 137, potassium 3.9, BUN 12, creatinine 1.1. We will discontinue the patient's Plavix today and start her on Brilinta 90 mg twice a day along with a baby aspirin. Continue to monitor the patient for 24 hours. 12/31/2017 Patient seen and examined this morning, denies any chest pain or difficulty in breathing. Hemodynamically stable. She may be able to be discharged home today from our perspective to follow-up in the office post discharge. Objective - Vital Signs Vital signs: Vital Signs Temp 98.2 F 12/31/17 07:51 Pulse 77 12/31/17 07:51 Resp 18 12/31/17 07:51 BP 121/59 12/31/17 07:51 Pulse Ox 98 12/31/17 07:51 Intake & Output 12/30/17 12/31/17 12/31/17 18:59 06:59 18:59 Intake Total 330 Output Total 900 Balance -570 Weight 96.1 kg Intake: Oral 330 Output: Urine 900 Other: # Voids 1 1 - Exam PHYSICAL EXAMINATION: GENERAL: 57-year-old female in no acute distress at the time of my examination HEENT: Head is atraumatic, normocephalic. Pupils equal, round. Sclera anicteric. Conjunctiva are clear. Mucous membranes of the mouth are moist. Neck is supple. There is no elevated jugular venous pressure.] bruit is heard. HEART EXAMINATION: Heart S1, S2 normal. No murmur or gallop heard. CHEST EXAMINATION: Lungs are clear to auscultation and precussion. No chest wall tenderness is noted on palpation or with deep breathing. ABDOMEN: Soft, nontender. Bowel sounds are heard. No organomegaly noted. Right groin soft, no evidence of any hematoma. EXTREMITIES: 2+ peripheral pulses with no evidence of peripheral edema and no calf tenderness noted. NEUROLOGIC patient is awake, alert and oriented ?-3. . - Labs CBC & Chem 7: 12/31/17 08:06 12/31/17 08:06 Labs: Abnormal Lab Results - Last 24 Hours (Table) 12/31/17 12/31/17 Range/Units 08:06 08:06 Hgb 10.9 L (11.4-16.0) gm/dL Hct 33.5 L (34.0-46.0) % Glucose 197 H (74-99) mg/dL Assessment and Plan Plan: Assessment and plan #1 non-ST elevation myocardial infarction, status post angioplasty and stenting of 2 lesions in the LAD #2 hypertension #3 bipolar and anxiety #4 GERD Plan Echocardiogram with Doppler study was performed which revealed an ejection fraction of 55-60%, moderate mitral regurgitation. From cardiology's perspective, patient may be discharged home today. We will make her a follow- up appointment in the office post discharge with Dr. VC Perez. Patient will be discharged home on dual antiplatelet therapy in the form of a baby aspirin and Brilinta, Lipitor 80 mg daily, Coreg 6.25 mg twice a day, and sublingual nitroglycerin as needed for chest pain. DNP note has been reviewed, I agree with a documented findings and plan of care. Patient was seen and examined.
== END 2017-12-31 11:28 | disposition home or self-care (01) | DRG 247 ==
LOC: EC 14:52 → 6SEL 16:13
PROVIDERS: ADMIT Internal Medicine; ATTEND Internal Medicine
PROC: 027035Z Dilation of Coronary Artery, One Artery with Two Drug-eluting Intraluminal Devices, Percutaneous Approach (ICD-10-PCS; principal; 2017-12-28)
PROC: B2111ZZ Fluoroscopy of Multiple Coronary Arteries using Low Osmolar Contrast (ICD-10-PCS; 2017-12-29)
PROC: 4A023N7 Measurement of Cardiac Sampling and Pressure, Left Heart, Percutaneous Approach (ICD-10-PCS; 2017-12-29 09:30)
DX: I21.4 Non-ST elevation (NSTEMI) myocardial infarction (principal); N17.9 Acute kidney failure, unspecified; I16.0 Hypertensive urgency; I10 Essential (primary) hypertension; G47.30 Sleep apnea, unspecified; G25.81 Restless legs syndrome; F41.0 Panic disorder [episodic paroxysmal anxiety]; F31.9 Bipolar disorder, unspecified; D64.9 Anemia, unspecified; E66.9 Obesity, unspecified; E78.00 Pure hypercholesterolemia, unspecified; E78.1 Pure hyperglyceridemia; E78.5 Hyperlipidemia, unspecified; I25.10 Atherosclerotic heart disease of native coronary artery without angina pectoris; K21.9 Gastro-esophageal reflux disease without esophagitis; K29.50 Unspecified chronic gastritis without bleeding; Z79.899 Other long term (current) drug therapy; Z68.34 Body mass index [BMI] 34.0-34.9, adult; Z80.1 Family history of malignant neoplasm of trachea, bronchus and lung; Z80.0 Family history of malignant neoplasm of digestive organs; Z80.8 Family history of malignant neoplasm of other organs or systems
CPT/HCPCS: 36415; 71046; 80048; 80053; 80061; 80178; 82550; 82553; 83735; 84484; 85025; 85027; 85610; 85730; 93005; 93306; 93452; 96365; 96366; 96376; 99291

== ENCOUNTER 2018-01-05 22:22 | Emergency (ER) | payer BC ==
--- NOTE | 2018-01-06 01:15 | US ---
EXAMINATION TYPE: US lower ext pseudo artery RT DATE OF EXAM: 01/06/2018 COMPARISON: NONE CLINICAL HISTORY: Pain. Right groin lump. Had Cath done x 1 week ago. EXAM PERFORMED: Grayscale and color Doppler duplex imaging performed of the groin, post cardiac jayla ter to assess for pseudoaneurysm. SIDE PERFORMED: Right Is there ultrasound evidence of a pseudoaneurysm:No Is there evidence of AV shunting: No Is there a fluid collection present: No IMPRESSION: The exam fails to demonstrate evidence of a pseudoaneurysm of the right femoral artery.
--- NOTE | 2018-01-06 01:29 | ED ---
General Adult HPI - General Chief complaint: Extremity Injury, Lower Stated complaint: Incision swelling Time Seen by Provider: 01/06/18 00:14 Source: patient Mode of arrival: ambulatory Limitations: no limitations - History of Present Illness Initial comments: 57 year-old female patient who is status post cardiac catheterization with stent placement on 12/29/2017 presents to the emergency department today for complaints of right groin swelling and warmth. Patient states that she had been recovering well from her myocardial infarction and catheterization when today she was showering and noticed swelling to the right groin. She states that it felt a little more warm than usual as well. Denies any significant pain or discomfort to the groin or the leg. Denies any numbness or tingling to the lower extremities. States that this is the site of her cardiac catheterization. Denies any fever or chills. Patient denies any recent rash, shortness breath, chest pain, abdominal pain, nausea, vomiting, diarrhea, constipation, back pain, numbness, tingling, dizziness, weakness, hematuria, dysuria, urinary urgency, urinary frequency, headache, visual changes, or any other complaints. - Related Data Home Medications Medication Instructions Recorded Confirmed LORazepam [Ativan] 0.5 mg PO TID 06/12/17 12/28/17 [place] Carbonate 300 mg PO BID 06/12/17 12/28/17 buPROPion HCL [Wellbutrin SR] 150 mg PO BID 06/12/17 12/28/17 rOPINIRole HCL [Requip] 1 mg PO HS 06/12/17 12/28/17 Fenofibrate Nanocrystallized 145 mg PO DAILY 12/28/17 12/28/17 [Fenofibrate] Iron(Unknown) 1 tab PO Q48H 12/28/17 12/28/17 Multivitamins, Thera [Multivitamin 1 tab PO DAILY 12/28/17 12/28/17 (formulary)] Previous Rx's Medication Instructions Recorded Aspirin 81 mg PO DAILY #30 chew 12/31/17 Atorvastatin [Lipitor] 80 mg PO HS #30 tab 12/31/17 Carvedilol [Coreg] 6.25 mg PO BID-W/MEALS #60 tab 12/31/17 Lisinopril [Zestril] 20 mg PO DAILY #30 tab 12/31/17 Nitroglycerin Sl Tabs [Nitrostat] 0.4 mg SUBLINGUAL Q5M PRN #30 tab 12/31/17 Ticagrelor [Brilinta] 90 mg PO BID #60 tab 12/31/17 Allergies Allergy/AdvReac Type Severity Reaction Status Date / Time No Known Allergies Allergy Verified 12/28/17 16:01 Review of Systems ROS Statement: Those systems with pertinent positive or pertinent negative responses have been documented in the HPI. ROS Other: All systems not noted in ROS Statement are negative. Past Medical History Past Medical History: GERD/Reflux, Hyperlipidemia, Hypertension, Myocardial Infarction (MS), Sleep Apnea/CPAP/BIPAP Additional Past Medical History / Comment(s): restless leg History of Any Multi-Drug Resistant Organisms: None Reported Past Surgical History: Back Surgery, Bladder Surgery, Heart Catheterization, Heart Catheterization With Stent, Tubal Ligation Additional Past Surgical History / Comment(s): bladder sling, colonoscopy Past Anesthesia/Blood Transfusion Reactions: No Reported Reaction Past Psychological History: Anxiety, Bipolar Smoking Status: Never smoker Past Alcohol Use History: None Reported Past Drug Use History: None Reported - Past Family History Mother Family Medical History: Cancer Additional Family Medical History / Comment(s): lung, colon Sister(s) Family Medical History: Cancer Additional Family Medical History / Comment(s): brain General Exam Limitations: no limitations General appearance: alert, in no apparent distress, other (This is a well- developed, well-nourished adult female patient in no acute distress. Vital signs upon presentation are temperature 98.5F, pulse 67, respirations 18, blood pressure 125/75, pulse ox 98% on room air.) Eye exam: Present: normal appearance, PERRL, EOMI. Absent: scleral icterus, conjunctival injection, periorbital swelling ENT exam: Present: normal exam, normal oropharynx, mucous membranes moist Respiratory exam: Present: normal lung sounds bilaterally. Absent: respiratory distress, wheezes, rales, rhonchi, stridor Cardiovascular Exam: Present: regular rate, normal rhythm, normal heart sounds. Absent: systolic murmur, diastolic murmur, rubs, gallop, clicks GI/Abdominal exam: Present: soft, normal bowel sounds, other (Right groin exhibits an indurated circular area. No erythema or warmth noted.). Absent: distended, tenderness, guarding, rebound, rigid Extremities exam: Present: normal inspection, full ROM, normal capillary refill , other (Skin to the lower extremities is pink, warm, and dry. Cap refills less than 3 seconds. Pedal and posttibial pulses are 2+ and equal bilaterally.) . Absent: tenderness, pedal edema, joint swelling, calf tenderness Neurological exam: Present: alert, oriented X3, CN II-XII intact Psychiatric exam: Present: normal affect, normal mood Skin exam: Present: warm, dry, intact, normal color. Absent: rash Course Vital Signs 01/05/18 01/06/18 23:06 01:44 Temperature 98.5 F 97.7 F Pulse Rate 67 68 Respiratory 18 16 Rate Blood Pressure 125/75 120/59 O2 Sat by Pulse 98 99 Oximetry Medical Decision Making - Medical Decision Making 57 old female patient presented to the emergency department today for complaints of right groin swelling and warmth. Physical examination did reveal a small circular indurated lesion to the right groin. Neurovascular status was intact to the lower extremities. There is no swelling, ecchymosis, or warmth noted to the area. Ultrasound of the right femoral artery failed to demonstrate evidence of pseudoaneurysm. Did discuss all results with patient, she is instructed to follow-up with her carpet repairer for recheck in 1-2 days. I did discuss that her symptoms most likely related to hematoma of the area. Return parameters were discussed in detail. She verbalizes understanding and agrees with this plan. - Radiology Data Radiology results: report reviewed, image reviewed Did perform duplex imaging of the groin to assess for pseudoaneurysm. Report was reviewed in its entirety. Impression by Dr. Steen shows exam fails a temperature evidence of a pseudoaneurysm of the right femoral artery. Disposition Clinical Impression: Hematoma Disposition: HOME SELF-CARE Condition: Good Instructions: Hematoma (ED) Additional Instructions: Follow-up with your carpet repairer for recheck as soon as possible. Return here immediately for any new, worsening, or concerning symptoms. Is patient prescribed a controlled substance at d/c from ED?: No Referrals: Jaye Bloom MD [Primary Care Provider] - 1-2 days Time of Disposition: 01:29
[2018-01-06 01:46] VITALS: BP 120/59; PULSE 68; RESP 16; TEMP 97.7
== END 2018-01-06 01:47 | disposition home or self-care (01) ==
LOC: EC 22:22
DX: K91.871 Postprocedural hematoma of a digestive system organ or structure following other procedure (principal); E78.5 Hyperlipidemia, unspecified; I10 Essential (primary) hypertension; G25.81 Restless legs syndrome; G47.30 Sleep apnea, unspecified; F31.9 Bipolar disorder, unspecified; F41.9 Anxiety disorder, unspecified; I25.2 Old myocardial infarction; Z79.899 Other long term (current) drug therapy; Z99.89 Dependence on other enabling machines and devices; Z95.5 Presence of coronary angioplasty implant and graft; Z80.0 Family history of malignant neoplasm of digestive organs
CPT/HCPCS: 93975; 99283

== ENCOUNTER → 2018-01-30 | Outpatient (CLI) | payer BC ==
--- NOTE | 2018-02-02 11:31 | MM ---
Reason for exam: screening (asymptomatic). Last mammogram was performed 2 years and 7 months ago. History: Patient is postmenopausal. Physical Findings: A clinical breast exam by your physician is recommended on an annual basis and results should be correlated with mammographic findings. MG Screening Mammo w CAD Bilateral CC and MLO view(s) were taken. Prior study comparison: July 03, 2015, mammogram, performed at [facility]. The breast tissue is heterogeneously dense. This may lower the sensitivity of mammography. Stable distortion left upper MLO view. No significant changes when compared with prior studies. ASSESSMENT: Benign, BI-RAD 2 RECOMMENDATION: Routine screening mammogram of both breasts in 1 year.
== END ==
LOC: RADMAMWWP 06:48
PROVIDERS: ATTEND Family Medicine
DX: Z12.31 Encounter for screening mammogram for malignant neoplasm of breast (principal)
CPT/HCPCS: 77067

== ENCOUNTER → 2018-04-03 | Outpatient (CLI) | payer BC ==
--- NOTE | 2018-04-03 16:01 | US ---
EXAMINATION TYPE: US kidneys/renal and bladder DATE OF EXAM: 04/03/2018 COMPARISON: NONE CLINICAL HISTORY: R30.0 DYSURIA. Right flank pain, recurrent UTI EXAM MEASUREMENTS: Right Kidney: 11.8 x 4.2 x 4.5 cm Left Kidney: 13.4 x 5.2 x 3.8 cm Right Kidney: no evidence of hydronephrosis Left Kidney: enlarged Bladder: appears wnl Bilateral Jets seen: no GB appears to be filled with stones There is no evidence for hydronephrosis at this point in time. No nephrolithiasis is seen. No lukas s are identified. The urinary bladder is anechoic. Bilateral ureteral jets are not seen. IMPRESSION: Incidental stone filled contracted gallbladder. No hydronephrosis is seen bilaterally.
== END | disposition home or self-care (01) ==
LOC: RADUSWWP 15:23
PROVIDERS: ATTEND Family Medicine
DX: R30.0 Dysuria (principal)
CPT/HCPCS: 76770

== ENCOUNTER → 2018-05-11 | Outpatient (CLI) | payer BC ==
--- NOTE | 2018-05-11 11:59 | CT ---
EXAMINATION TYPE: CT abdomen pelvis w con DATE OF EXAM: 05/11/2018 HISTORY: Rt flank pain, abn US CT DLP: 1618.9mGycm Automated Exposure Control for Dose Reduction was Utilized. CONTRAST: CT scan of the abdomen and pelvis is performed with IV Contrast, patient injected with 100 mL of Isov ue 300. COMPARISON: Renal ultrasound April 03, 2018 FINDINGS: LUNG BASES: No significant abnormality is appreciated. LIVER/GB: There is 1.9 cm dependent stone in fundus axial image 31. Additional stones suspected on ul trasound are less well seen on CT. Gallbladder is better distended or visualized noncontrasted on CT versus recent ultrasound. No surrounding inflammatory change or fluid is noted. PANCREAS: No significant abnormality is seen. SPLEEN: No significant abnormality is seen. ADRENALS: No significant abnormality is seen. KIDNEYS: Symmetric cortical medullary uptake and excretion from both kidneys is seen without concerni ng solid or cystic renal mass or hydronephrosis identified bilaterally. No significant asymmetric dim inished or increased size to either kidney, left kidney is slightly larger than right but not greater than 2 cm larger. Bladder is poorly distended and thus suboptimally evaluated. BOWEL: Oral contrast reaches level of distal transverse colon. There is no suspicious small or large bowel dilatation. UTERUS/ADNEXA: No gross abnormality seen. LYMPH NODES: No greater than 1cm abdominal or pelvic lymph nodes are appreciated. OSSEOUS STRUCTURES: Advanced disc space narrowing with endplate sclerosis L5-S1 level is noted. Mild to moderate axial joint space loss in both hips is seen. OTHER: No significant additional abnormality is seen. IMPRESSION: Gallstones confirmed. No secondary CT evidence for acute cholecystitis. No renal stones o r hydronephrosis is clearly seen.
== END | disposition home or self-care (01) ==
LOC: RADCTMAIN 09:51
PROVIDERS: ATTEND Surgery
DX: K80.20 Calculus of gallbladder without cholecystitis without obstruction (principal)
CPT/HCPCS: 74177; Q9967

== ENCOUNTER 2019-03-17 11:46 | Day surgery (SDC) | payer BC, OTHER ==
[2019-03-16 11:02] VITALS: BMI 38.7
[2019-03-17 13:07] VITALS: RESP 16; TEMP 97.6
[2019-03-17] MEDS ORDERED: LACTATED RINGERS 1,000 ML IV ONE (13:13)
[2019-03-17] MEDS ORDERED: LIDOCAINE 1% 20 ML VIAL (10MG/ML) FOR IV START INTRADERMA ONE (13:13)
[2019-03-17] MEDS ORDERED: PROPOFOL 10 MG/ML 20 ML VIAL IV ONE ×2 (14:05)
[2019-03-17] MEDS ORDERED: MIDAZOLAM 2 MG/2 ML VIAL ONE ×2 (14:05)
[2019-03-17] MEDS ORDERED: fentaNYL (PF) 50 MCG/ML 2 ML AMP ONE ×2 (14:05)
--- NOTE | 2019-03-17 14:13 | P.OP ---
Date of Procedure: 03/17/19 Preoperative Diagnosis: dermatochalasis, Bilateral upper Postoperative Diagnosis: same Procedure(s) Performed: Blepharoplasty - functional, bilateral upper lid Anesthesia: local Surgeon: Damion Sandy Estimated Blood Loss (ml): 1 Condition: stable Disposition: same day Description of Procedure: preped and draped. Skin marked and removed using 11 blade. hemostasis established. Running chromic suture placed. ointment placed. Instructions reviewed. Plan - Discharge Summary Discharge Rx Participant: Yes New Discharge Prescriptions: No Action rOPINIRole HCL [Requip] 1 mg PO HS LORazepam [Ativan] 0.5 mg PO TID buPROPion HCL [Wellbutrin SR] 150 mg PO BID [place] Carbonate 300 mg PO BID Multivitamins, Thera [Multivitamin (formulary)] 1 tab PO DAILY Iron(Unknown) 1 tab PO Q48H Aspirin 81 mg PO DAILY #30 chew Atorvastatin [Lipitor] 80 mg PO HS #30 tab Carvedilol [Coreg] 6.25 mg PO BID-W/MEALS #60 tab Lisinopril [Zestril] 20 mg PO DAILY #30 tab Nitroglycerin Sl Tabs [Nitrostat] 0.4 mg SUBLINGUAL Q5M PRN #30 tab PRN Reason: Chest Pain Ticagrelor [Brilinta] 90 mg PO BID #60 tab Discharge Medication List LORazepam [Ativan] 0.5 mg PO TID 06/12/17 [History] [place] Carbonate 300 mg PO BID 06/12/17 [History] buPROPion HCL [Wellbutrin SR] 150 mg PO BID 06/12/17 [History] rOPINIRole HCL [Requip] 1 mg PO HS 06/12/17 [History] Iron(Unknown) 1 tab PO Q48H 12/28/17 [History] Multivitamins, Thera [Multivitamin (formulary)] 1 tab PO DAILY 12/28/17 [History] Aspirin 81 mg PO DAILY #30 chew 12/31/17 [Rx] Atorvastatin [Lipitor] 80 mg PO HS #30 tab 12/31/17 [Rx] Carvedilol [Coreg] 6.25 mg PO BID-W/MEALS #60 tab 12/31/17 [Rx] Lisinopril [Zestril] 20 mg PO DAILY #30 tab 12/31/17 [Rx] Nitroglycerin Sl Tabs [Nitrostat] 0.4 mg SUBLINGUAL Q5M PRN #30 tab 12/31/17 [Rx] Ticagrelor [Brilinta] 90 mg PO BID #60 tab 12/31/17 [Rx]
[2019-03-17] MEDS ORDERED: BUPIVACAINE (PF) 0.5% 30 ML VIAL SQ ONE (14:32)
[2019-03-17] MEDS ORDERED: LIDOCAINE 2%-EPI 1:100,000 20 ML VIAL SQ ONE (14:33)
[2019-03-17] MEDS ORDERED: NEOMYCIN-POLYMYXIN-DEXAMETH OINT 3.5 GM TUBE BOTH EYES ONE (14:56)
[2019-03-17 15:21] VITALS: BP 135/79; PULSE 78
== END 2019-03-17 15:53 | disposition home or self-care (01) ==
LOC: OR 11:46
PROVIDERS: ATTEND Ophthalmology
DX: H02.834 Dermatochalasis of left upper eyelid (principal); H02.831 Dermatochalasis of right upper eyelid; I25.10 Atherosclerotic heart disease of native coronary artery without angina pectoris; I25.2 Old myocardial infarction; I10 Essential (primary) hypertension; E78.5 Hyperlipidemia, unspecified; G47.33 Obstructive sleep apnea (adult) (pediatric); G25.81 Restless legs syndrome; K21.9 Gastro-esophageal reflux disease without esophagitis; Z79.02 Long term (current) use of antithrombotics/antiplatelets; Z79.82 Long term (current) use of aspirin; Z79.899 Other long term (current) drug therapy; Z99.89 Dependence on other enabling machines and devices; Z98.51 Tubal ligation status; Z98.890 Other specified postprocedural states; Z95.5 Presence of coronary angioplasty implant and graft; Z82.49 Family history of ischemic heart disease and other diseases of the circulatory system
CPT/HCPCS: 15822; J2250; J0690; J3010; J2704

== ENCOUNTER → 2019-04-26 | Outpatient (CLI) | payer OTHER ==
--- NOTE | 2019-04-26 22:40 | MR ---
EXAMINATION TYPE: MR knee RT wo con DATE OF EXAM: 04/26/2019 COMPARISON: Outside knee x-ray April 06, 2019. HISTORY: Right knee pain. Pain and swelling for 4 months per patient. TECHNIQUE: Multiplanar, multisequence images of the knee is performed without IV contrast. FINDINGS: MEDIAL MENISCUS: Anterior horn is intact without tear. Posterior horn shows globular increased signal appears to extend to inferior articular surface sagittal images 10 and 11 LATERAL MENISCUS: Anterior and posterior horns are intact without tear. CRUCIATE LIGAMENTS: The anterior and posterior cruciate ligaments are intact and unremarkable. COLLATERAL LIGAMENTS: The medial collateral ligament and lateral collateral ligament complex are inta ct and unremarkable. EXTENSOR MECHANISM: Visualized quadriceps and patellar tendons are intact. EFFUSION: No significant suprapatellar joint effusion. POPLITEAL CYST: Moderate size popliteal/tsai cyst sagittal image 12 measuring 5.2 cm long axis. TRICOMPARTMENT SPACES: Moderate narrowing medial tibiofemoral and patellofemoral compartments is seen . Mild narrowing of lateral tibiofemoral compartment. No significant spurring. CARTILAGE: Chondromalacia patella with cartilaginous loss along posterior patellar pole, full-thickne ss defect noted sagittal image 19. Thinning of articular cartilage medial tibiofemoral compartment. BONE MARROW SIGNAL: Focus of heterogeneous increased T2 signal posterior patellar polar level of full -thickness cartilaginous loss axial image 21. OTHER: No additional significant abnormality is appreciated. IMPRESSION: 1. Moderate degenerative changes patellofemoral and medial tibiofemoral compartments as detailed tianna valdez. 2. At least intrasubstance suspected full-thickness tear posterior horn medial meniscus may be degene rative in etiology. 3. Moderate-sized popliteal cyst.
== END | disposition home or self-care (01) ==
LOC: RADMRIMAIN 21:05
PROVIDERS: ATTEND Orthopaedic Surgery
DX: M17.11 Unilateral primary osteoarthritis, right knee (principal); M71.21 Synovial cyst of popliteal space [Baker], right knee

== ENCOUNTER → 2019-06-14 | Outpatient (CLI) | payer OTHER ==
[2019-06-14 15:49] LABS: African American GFR (CKD) 81.7 (60.0-200.0); Albumin 4.5 g/dL (3.80-4.90); Albumin/Globulin Ratio 2.65 (1.60-3.17); Anion Gap 10.2 mmol/L (4.00-12.00); BUN/Creat Ratio 15.56 Ratio (12.00-20.00); Calcium 9.8 mg/dL (8.7-10.3); Carbon Dioxide 22.8 mmol/L (21.6-31.8); Chol/HDL Ratio 3.79; Globulin 1.7 g/dL (1.6-3.3); LDL Cholesterol,Calculated 15.4 mg/dL (0.0-131.0); Non-African American GFR(CKD) 70.5 (60.0-200.0); Potassium 4.4 mmol/L (3.5-5.5); Total Bilirubin 0.7 mg/dL (0.2-1.2); Total Protein 6.2 g/dL (6.2-8.2); VLDL Calculation 76.6 mg/dL (5.00-40.00)
== END | disposition home or self-care (01) ==
LOC: LABWHC1 07:05
PROVIDERS: ATTEND Family Medicine
DX: I10 Essential (primary) hypertension (principal); I25.10 Atherosclerotic heart disease of native coronary artery without angina pectoris; G47.33 Obstructive sleep apnea (adult) (pediatric); E78.5 Hyperlipidemia, unspecified
CPT/HCPCS: 36415; 80053; 80061; 84443

== ENCOUNTER → 2019-06-14 | Outpatient (CLI) | payer OTHER ==
[2019-06-14 08:39] LABS: Basophils % (A) 1 %; Eosinophils # (A) 0.4 k/uL (0-0.7); Eosinophils % (A) 6 %; HCT 39.4 % (34.0-46.0); HGB 12.5 gm/dL (11.4-16.0); Hypochromasia Slight; Lymphocytes # (A) 1.6 k/uL (1.0-4.8); Lymphocytes % (A) 22 %; MCH 26.5 pg (25.0-35.0); MCHC 31.8 g/dL (31.0-37.0); MCV 83.4 fL (80.0-100.0); Mean Platelet Volume 7.5; Monocytes # (A) 0.4 k/uL (0-1.0); Monocytes % (A) 6 %; Neutrophils # (A) 4.6 k/uL (1.3-7.7); Neutrophils % (A) 63 %; Platelet Count 364 k/uL (150-450); RBC 4.72 m/uL (3.80-5.40); RDW 15.3 % (11.5-15.5); WBC 7.2 k/uL (3.8-10.6)
== END | disposition home or self-care (01) ==
LOC: LABPAT 07:03
PROVIDERS: ATTEND Orthopaedic Surgery
DX: Z01.812 Encounter for preprocedural laboratory examination (principal); M23.91 Unspecified internal derangement of right knee
CPT/HCPCS: 85025

== ENCOUNTER 2019-06-17 09:49 | Day surgery (SDC) | payer OTHER ==
[2019-06-15 10:45] VITALS: BMI 40.9
--- NOTE | 2019-06-16 13:49 | HP ---
HISTORY AND PHYSICAL DATE OF SURGERY: 06/17/2019 Chrystal Shay is a 59-year-old patient seen with progressive right knee pain. We discussed options. She elected to proceed with arthroscopy. Consent was obtained. PAST MEDICAL HISTORY: Hypertension, hyperlipidemia, gastroesophageal reflux disease. PAST SURGICAL HISTORY: Tubal ligation, colonoscopy, D and C. DAILY MEDICATIONS: 1. Atorvastatin. 2. Brilinta. 3. Carvedilol. 4. Lisinopril. 5. Omeprazole. 6. Wellbutrin. ALLERGIES: None. SOCIAL HISTORY: She denies tobacco use. PHYSICAL EVALUATION OF THE RIGHT KNEE: Range of motion is 0-100. Mild effusion. Tenderness along the medial joint line. Positive medial Caleb's. Ligaments are stable. Hip rotation is without pain. Her distal neurovascular exam is intact. RADIOGRAPHS OF THE RIGHT KNEE: Revealed moderate medial compartment osteoarthritis. A right knee MRI revealed medial meniscal tear, osteoarthritis and a popliteal cyst. IMPRESSION: 1. Internal derangement, right knee with medial meniscal tear. 2. Hypertension. 3. Hyperlipidemia. 4. Gastroesophageal reflux disease. 5. Depression. PLAN: Right knee arthroscopy with partial meniscectomy and debridement. MMODL / IJN: [id number] /
[~2019-06-17 09:49] MED LIST changes: +HYDROmorphone 0.5 MG/0.5 ML SYRINGE IVP PRN; +LIDOCAINE 1% 20 ML VIAL (10MG/ML) FOR IV START INTRADERMA PRN; +ONDANSETRON 4 MG/2 ML VIAL IVP ONE
[2019-06-17] MEDS ORDERED: DEXAMETHASONE SOD PHOSPHATE 10 MG/ML 1 ML VIAL IV ONE (10:45)
[2019-06-17] MEDS ORDERED: MIDAZOLAM 2 MG/2 ML VIAL ONE (11:13)
[2019-06-17] MEDS ORDERED: LIDOCAINE 1% INJ 10MG/ML (20 ML MDV) ONE (11:13)
[2019-06-17] MEDS ORDERED: PROPOFOL 10 MG/ML 20 ML VIAL IV ONE (11:13)
[2019-06-17] MEDS ORDERED: fentaNYL (PF) 50 MCG/ML 2 ML AMP ONE (11:13)
[2019-06-17] MEDS ORDERED: BUPIVACAINE (PF) 0.25% 30 ML VIAL INTRAARTIC ONE (11:41)
--- NOTE | 2019-06-17 12:08 | P.OP ---
Date of Procedure: 06/17/19 Preoperative Diagnosis: Internal derangement right knee Postoperative Diagnosis: 1. Tear medial meniscus right knee 2. Reactive synovitis medial, lateral and suprapatellar compartments right knee Procedure(s) Performed: 1. Arthroscopic partial medial meniscectomy right knee 2. Arthroscopic partial synovectomy medial, lateral and suprapatellar compartments right knee Anesthesia: MELLISAA, local Surgeon: Matti Smith Estimated Blood Loss (ml): 5 Pathology: none sent Condition: stable Disposition: PACU Indications for Procedure: 59-year-old patient seen with progressive right knee pain. After having treatment options discussed, she elected to proceed with arthroscopy. Operative Findings: See description of procedure Description of Procedure: Patient was taken to the operative suite. Patient underwent a general anesthetic by the department of anesthesia. Patient was given preoperative antibiotics. The right lower extremity was placed in a well-padded arthroscopic leg persaud. The right leg was prepped and draped in the normal sterile orthopedic fashion. A lateral parapatellar and suprapatellar incision was made. Trochars were inserted. Arthroscopy was initiated. Suprapatellar pouch revealed diffuse thick reactive synovitis. The patellofemoral joint appeared articulate congruently. There was grade 2 chondromalacia of both the patella and femoral sulcus with no osteochondral tears present. The scope was guided into the medial gutter. No loose bodies or plica were identified. The scope was then guided into the medial compartment. A medial parapatellar incision was made. Trocar inserted followed by probe. There was a complex tear involving the posterior horn medial meniscus. There were grade 1/2 chondromalacia changes the medial compartment. There was thick reactive synovitis anteriorly. I performed a partial medial meniscectomy. I performed a partial synovectomy. The residual meniscus was stable. There was good decompression of synovitis. Scope and probe were then guided into the intercondylar notch. Cruciates were identified, probed and found to be stable. The scope and probe were then guided into lateral compartment. Lateral meniscus was probed and found to be stable. There was no chondromalacia present. There was synovitis anteriorly. A motorize shaver was introduced and a partial synovectomy was performed. The shaver was removed. There was good decompression of synovitis. The scope was in guided back into the suprapatellar compartment. I introduced a motorized shaver into the supraspatellar compartment. I debrided some piecemeal fragments of meniscus I encountered. I performed a partial synovectomy. Shaver was removed. I took one more look on the entire knee, no residual debris. Instruments were now removed from the joint. The joint was infiltrated with .25% Marcaine. Steri-Strips were applied to the portal sites. Sterile dressings were applied. The patient was placed into a ELIEL hose. No tourniquet was utilized. The patient was awakened, transferred to a bed and taken to recovery stable satisfactory condition.
[2019-06-17 12:09] VITALS: TEMP 97
[2019-06-17 13:33] VITALS: RESP 18
[2019-06-17 13:52] VITALS: BP 109/68; PULSE 89
== END 2019-06-17 14:08 | disposition home or self-care (01) ==
LOC: OR 09:49
PROVIDERS: ATTEND Orthopaedic Surgery
DX: S83.241A Other tear of medial meniscus, current injury, right knee, initial encounter (principal); X58.XXXA Exposure to other specified factors, initial encounter; M22.41 Chondromalacia patellae, right knee; M65.861 Other synovitis and tenosynovitis, right lower leg; I25.10 Atherosclerotic heart disease of native coronary artery without angina pectoris; I10 Essential (primary) hypertension; E78.5 Hyperlipidemia, unspecified; K21.9 Gastro-esophageal reflux disease without esophagitis; Z98.51 Tubal ligation status; I25.2 Old myocardial infarction; G47.33 Obstructive sleep apnea (adult) (pediatric); Z95.5 Presence of coronary angioplasty implant and graft; Z97.2 Presence of dental prosthetic device (complete) (partial); E66.01 Morbid (severe) obesity due to excess calories; Z68.41 Body mass index [BMI] 40.0-44.9, adult; Z79.82 Long term (current) use of aspirin; Z79.02 Long term (current) use of antithrombotics/antiplatelets; Z79.899 Other long term (current) drug therapy
CPT/HCPCS: 29881; 29876; J2250; J1100; J0690; J2405; J2001; J3010; J2704

== ENCOUNTER → 2019-11-19 | Outpatient (CLI) | payer OTHER ==
[2019-11-19 16:48] LABS: Hemoglobin A1C 8.5 % (4.0-6.0)
== END | disposition home or self-care (01) ==
LOC: LABWHC1 09:38
PROVIDERS: ATTEND Family Medicine
DX: R73.09 Other abnormal glucose (principal)
CPT/HCPCS: 36415; 83036

== ENCOUNTER 2020-01-06 09:24 | Day surgery (SDC) | payer OTHER ==
[2020-01-04 14:31] VITALS: BMI 37.1
[~2020-01-06 09:24] MED LIST changes: -HYDROmorphone 0.5 MG/0.5 ML SYRINGE IVP PRN; -LIDOCAINE 1% 20 ML VIAL (10MG/ML) FOR IV START INTRADERMA PRN; -ONDANSETRON 4 MG/2 ML VIAL IVP ONE
[2020-01-06 09:56] VITALS: TEMP 97.1
[2020-01-06] MEDS ORDERED: LIDOCAINE 1% (10MG/ML) FOR IV START INTRADERMA ONE (09:57)
[2020-01-06 09:59] LABS: Glucose,Whole Blood 135 mg/dL (75-99)
[2020-01-06] MEDS ORDERED: PROPOFOL 10 MG/ML 20 ML VIAL IV ONE (10:45)
--- NOTE | 2020-01-06 11:00 | P.PCN ---
Date of Procedure: 01/06/20 Procedure(s) Performed: BRIEF HISTORY: Patient is a 59-year-old pleasant white female scheduled for an elective colonoscopy as a part of evaluation of change in bowel habits. Lately has been having chronic postprandial diarrhea with bowel movements anywhere from 4-6 a day which are loose to watery in consistency. She has intermittent lower abdominal pain also. Has prior history of colon polyps PROCEDURE PERFORMED: Colonoscopy with random biopsy. PREOPERATIVE DIAGNOSIS: Lower abdominal pain and chronic diarrhea. IV sedation per Anesthesia. PROCEDURE: After informed consent was obtained, the patient, was brought into the endoscopy unit. IV sedation was administered by Anesthesia under continuous monitoring. Digital rectal examination was normal. Initially the Olympus CF-160 flexible video colonoscope was then inserted in the rectum, gradually advanced into the cecum without any difficulty. Careful examination was performed as the scope was gradually being withdrawn. Ileocecal valve and the appendiceal orifice were visualized and appeared normal. Prep was excellent. Mucosa of the cecum, ascending colon, transverse colon, descending colon, sigmoid colon, and rectum appeared normal. Random biopsies were done from ascending and descending colon to rule out microscopic/collagenous colitis Retroflexion was performed in the rectum and no lesions were seen. The patient tolerated the procedure well. IMPRESSION: Normal-appearing colon from rectum to cecum with no evidence of colorectal neoplasia . RECOMMENDATIONS: Findings of this examination were discussed with the patient as well as a family. She was advised to follow with the biopsy results. She will continue with dicyclomine 10 mg 3 times daily as needed and she'll be seen in office in 6 weeks.
[2020-01-06 11:08] VITALS: PULSE 78; RESP 17
[2020-01-06 11:20] VITALS: BP 150/68
== END 2020-01-06 11:40 | disposition home or self-care (01) ==
LOC: ORWHC2ENDO 09:24
PROVIDERS: ATTEND Internal Medicine Gastroenterology
DX: K52.9 Noninfective gastroenteritis and colitis, unspecified (principal); E11.9 Type 2 diabetes mellitus without complications; E78.5 Hyperlipidemia, unspecified; K21.9 Gastro-esophageal reflux disease without esophagitis; Z79.899 Other long term (current) drug therapy; Z79.82 Long term (current) use of aspirin; Z79.84 Long term (current) use of oral hypoglycemic drugs
CPT/HCPCS: 88305; 45380; J2704

== ENCOUNTER 2020-01-26 21:14 | Emergency (ER) | payer OTHER ==
[2020-01-26 21:20] VITALS: TEMP 98.4
[2020-01-26] MEDS ORDERED: KETOROLAC 15 MG/ML 1 ML VIAL IVP STA (21:55)
[2020-01-26] MEDS ORDERED: PHENAZOPYRIDINE 100 MG TAB PO STA (21:55)
[2020-01-26] MEDS ORDERED: SODIUM CHLORIDE 0.9% 1,000 ML IV ONE (21:56)
[2020-01-26 21:59] LABS: Appearance,Urine Clear (Clear); Bacteria,Urine Occasional /hpf; Bilirubin,Urine Negative (Negative); Blood,Urine Negative (Negative); Color,Urine Colorless; Glucose,Urine (UA) Negative (Negative); Ketones,Urine Negative (Negative); Leukocyte Esterase,Urine Large (Negative); Mucus,Urine Rare /hpf; Nitrite,Urine Negative (Negative); PH, Urine 5.5 (5.0-8.0); Protein,Urine Negative (Negative); Specific Gravity,Urine 1.004 (1.001-1.035); Squamous Epithelial Cell,Urine <1 /hpf (0-4); Urobilinogen,Urine <2.0 mg/dL (<2.0); WBC,Urine 101 /hpf (0-5)
--- NOTE | 2020-01-26 22:10 | ED ---
Female Urogenital HPI - General Chief complaint: Urogenital Stated complaint: Urogenital Time Seen by Provider: 01/26/20 21:25 Source: patient, RN notes reviewed, old records reviewed Mode of arrival: ambulatory Limitations: no limitations - History of Present Illness Initial comments: Patient's a 60-year-old female present to return today with UTI symptoms for the past week. she had a history of frequent UTIs for the past few months due to being diagnosed with diabetes. She states she's been on multiple different antibiotics. Her most recent antibiotic was a few weeks ago and was placed on doxycycline. She reports that she was improving her symptoms. She states she's been drinking plenty of water. She does report that she's had a history of cystocele repair 6 years ago. She questions if this could be a relation to her symptoms. She reports today a stabbing pain in her urethra with urinating. She does complain of some mild flank pain on the right side. Patient states that she's had no recorded fevers. Her main complaint of pain is suprapubic and urethral pain. She denies any abnormal vaginal discharge or bleeding.. - Related Data Home Medications Medication Instructions Recorded Confirmed LORazepam [Ativan] 0.5 mg PO BID 06/12/17 01/26/20 buPROPion HCL [Wellbutrin SR] 150 mg PO BID 06/12/17 01/26/20 rOPINIRole HCL [Requip] 2 mg PO HS 06/12/17 01/26/20 Omeprazole [PriLOSEC] 20 mg PO BID 06/15/19 01/26/20 Ezetimibe [Zetia] 10 mg PO DAILY 01/04/20 01/26/20 Lisinopril-Hctz 20-12.5 mg 1 tab PO DAILY 01/04/20 01/26/20 [Zestoretic 20-12.5] [place] Carbonate 300 mg PO BID 01/04/20 01/26/20 metFORMIN HCL [Glucophage] 500 mg PO BID 01/04/20 01/26/20 Acetaminophen Tab [Tylenol] 1,500 mg PO ONCE PRN 01/26/20 01/26/20 valACYclovir HCL [Valtrex] 500 mg PO QAM 01/26/20 01/26/20 Previous Rx's Medication Instructions Recorded Aspirin 81 mg PO DAILY #30 chew 12/31/17 Atorvastatin [Lipitor] 80 mg PO HS #30 tab 12/31/17 Nitroglycerin Sl Tabs [Nitrostat] 0.4 mg SUBLINGUAL Q5M PRN #30 tab 12/31/17 carvediloL [Coreg] 6.25 mg PO BID-W/MEALS #60 tab 12/31/17 Cephalexin [Keflex] 500 mg PO Q6HR 7 Days #28 cap 01/26/20 Ketorolac [Toradol] 10 mg PO TID #10 tab 01/26/20 Phenazopyridine [Pyridium] 100 mg PO TID #9 tablet 01/26/20 Allergies Allergy/AdvReac Type Severity Reaction Status Date / Time No Known Allergies Allergy Verified 01/26/20 22:52 Review of Systems ROS Statement: Those systems with pertinent positive or pertinent negative responses have been documented in the HPI. ROS Other: All systems not noted in ROS Statement are negative. Past Medical History Past Medical History: Diabetes Mellitus Additional Past Medical History / Comment(s): restless leg, has cpap, UTI Last Myocardial Infarction Date:: 12/28/17 History of Any Multi-Drug Resistant Organisms: None Reported Past Surgical History: Back Surgery, Bladder Surgery, Heart Catheterization With Stent, Orthopedic Surgery, Tubal Ligation Additional Past Surgical History / Comment(s): bladder sling, colonoscopy, heart stent x2 Past Anesthesia/Blood Transfusion Reactions: No Reported Reaction Date of Last Stent Placement:: 01/03 Past Psychological History: Anxiety, Bipolar Smoking Status: Never smoker Past Alcohol Use History: Occasional Past Drug Use History: None Reported - Past Family History Mother Family Medical History: Cancer Additional Family Medical History / Comment(s): lung, colon Sister(s) Family Medical History: Cancer Additional Family Medical History / Comment(s): brain General Exam - General Exam Comments Initial Comments: 60-year-old female. Alert and oriented 3. No acute distress. General: Well appearing, well nourished, in no distress. Oriented x 3, normal mood and affect . Ambulating without difficulty. Skin: Good turgor, no rash, unusual bruising or prominent lesions Hair: Normal texture and distribution. HEENT: Head: Normocephalic, atraumatic, no visible or palpable masses, depressio ns, or scaring. Eyes: Visual acuity intact, conjunctiva clear, sclera non-icteric, EOM intact, PERRL. Ears: EACs clear, TMs translucent & cone of light visualized. hearing intact. Nose: No external lesions, mucosa non-inflamed, septum and turbinates normal Mouth: Mucous membranes moist, no mucosal lesions. Teeth/Gums: No obvious caries or periodontal disease. No gingival inflammation or significant resorption. Pharynx: Mucosa non-inflamed, no tonsillar hypertrophy or exudate Neck: Supple, without lesions, bruits, or adenopathy, thyroid non-enlarged and non-tender Heart: No cardiomegaly or thrills; regular rate and rhythm, no murmur or gallop Lungs: Clear to auscultation and percussion Abdomen: Bowel sounds normal, suprapubic tenderness. No CVA tenderness. Back: Spine normal without deformity or tenderness, no CVA tenderness Extremities: No amputations or deformities, cyanosis, edema or varicosities, peripheral pulses intact Musculoskeletal: Normal gait and station. No misalignment, asymmetry, crepitation, defects, tenderness, masses, effusions, decreased range of motion, instability, atrophy or abnormal strength or tone in the head, neck, spine, ribs, pelvis or extremities. Neurologic: CN 2-12 normal. Sensation to pain, touch, and proprioception normal. DTRs normal in upper and lower extremities. No pathologic reflexes. Psychiatric: Oriented X3, intact recent and remote memory, judgment and insight, normal mood and affect. Limitations: no limitations Course Vital Signs 01/26/20 21:15 Temperature 98.4 F Pulse Rate 86 Respiratory 20 Rate Blood Pressure 165/84 O2 Sat by Pulse 97 Oximetry Medical Decision Making - Medical Decision Making 60-year-old female presents today with history of frequent UTIs for the past few months. She's had worsening symptoms over the past week. Urinalysis is positive for infection with greater than 100 white blood cells. No hematuria. Patient was given IV Toradol, dose of Pyridium and Rocephin. Shunt reevaluation she reports significant improvement of pain. White blood cell count was within normal limits and kidney function is normal. Patient states she feels well and was discharged home. I advised Patient to have prompt follow-up with urologist. She does have an upcoming appointment this week. I discussed that we will have a urine culture today. We'll start the Patient at this time on Keflex and Pyridium and Toradol. - Lab Data Result diagrams: 01/26/20 22:18 01/26/20 22:18 Lab Results 01/26/20 01/26/20 01/26/20 Range/Units 21:32 22:18 22:18 WBC 7.4 (3.8-10.6) k/uL RBC 4.58 (3.80-5.40) m/uL Hgb 12.4 (11.4-16.0) gm/dL Hct 38.5 (34.0-46.0) % MCV 84.1 (80.0-100.0) fL MCH 27.2 (25.0-35.0) pg MCHC 32.3 (31.0-37.0) g/dL RDW 14.7 (11.5-15.5) % Plt Count 329 (150-450) k/uL Neutrophils % 57 % Lymphocytes % 30 % Monocytes % 5 % Eosinophils % 5 % Basophils % 1 % Neutrophils # 4.2 (1.3-7.7) k/uL Lymphocytes # 2.2 (1.0-4.8) k/uL Monocytes # 0.4 (0-1.0) k/uL Eosinophils # 0.4 (0-0.7) k/uL Basophils # 0.0 (0-0.2) k/uL Sodium 138 (137-145) mmol/L Potassium 3.8 (3.5-5.1) mmol/L Chloride 104 (98-107) mmol/L Carbon Dioxide 24 (22-30) mmol/L Anion Gap 10 mmol/L BUN 11 (7-17) mg/dL Creatinine 0.74 (0.52-1.04) mg/dL Est GFR (CKD-EPI)AfAm >90 (>60 ml/min/1.73 sqM) Est GFR (CKD-EPI)NonAf 90 (>60 ml/min/1.73 sqM) Glucose 136 H (74-99) mg/dL Calcium 10.3 H (8.4-10.2) mg/dL Total Bilirubin 0.6 (0.2-1.3) mg/dL AST 30 (14-36) U/L ALT 26 (4-34) U/L Alkaline Phosphatase 86 (38-126) U/L Total Protein 6.7 (6.3-8.2) g/dL Albumin 4.4 (3.5-5.0) g/dL Urine Color Colorless Urine Appearance Clear (Clear) Urine pH 5.5 (5.0-8.0) Ur Specific [place] 1.004 (1.001-1.035) Urine Protein Negative (Negative) Urine Glucose (UA) Negative (Negative) Urine Ketones Negative (Negative) Urine Blood Negative (Negative) Urine Nitrite Negative (Negative) Urine Bilirubin Negative (Negative) Urine Urobilinogen <2.0 (<2.0) mg/dL Ur Leukocyte Esterase Large H (Negative) Urine WBC 101 H (0-5) /hpf Urine WBC Clumps Few H (None) /hpf Ur Squamous Epith Cells <1 (0-4) /hpf Urine Bacteria Occasional H (None) /hpf Urine Mucus Rare H (None) /hpf Disposition Clinical Impression: UTI (urinary tract infection) Disposition: HOME SELF-CARE Condition: Good Instructions (If sedation given, give patient instructions): Urinary Tract Infection in Women (ED) Additional Instructions: Advised follow-up with urology. Rest, drink plenty of fluids. Take entire antibiotic prescription. A few of worsening fever unable tolerate medication after 2 days, Return to the ER. Return to the emergency department if any alarming signs or symptoms occur. Prescriptions: Cephalexin [Keflex] 500 mg PO Q6HR 7 Days #28 cap Phenazopyridine [Pyridium] 100 mg PO TID #9 tablet Ketorolac [Toradol] 10 mg PO TID #10 tab Is patient prescribed a controlled substance at d/c from ED?: No Referrals: Jaye Bloom MD [Primary Care Provider] - 1-2 days Time of Disposition: 23:27
[2020-01-26] MEDS ORDERED: cefTRIAXone IN SWFI 1,000 MG/10 ML SYRINGE IVP STA (22:27)
[2020-01-26 22:55] LABS: ALT 26 U/L (4-34); AST 30 U/L (14-36); African American GFR (CKD) >90 (>60 ml/min/1.73 sqM); Albumin 4.4 g/dL (3.5-5.0); Alkaline Phosphatase 86 U/L (38-126); Anion Gap 10 mmol/L; Blood Urea Nitrogen 11 mg/dL (7-17); Calcium 10.3 mg/dL (8.4-10.2); Carbon Dioxide 24 mmol/L (22-30); Chloride 104 mmol/L (98-107); Glucose 136 mg/dL (74-99); Non-African American GFR(CKD) 90 (>60 ml/min/1.73 sqM); Potassium 3.8 mmol/L (3.5-5.1); Sodium 138 mmol/L (137-145); Total Bilirubin 0.6 mg/dL (0.2-1.3); Total Protein 6.7 g/dL (6.3-8.2)
[2020-01-26 23:09] LABS: Basophils % (A) 1 %; Eosinophils # (A) 0.4 k/uL (0-0.7); Eosinophils % (A) 5 %; HCT 38.5 % (34.0-46.0); HGB 12.4 gm/dL (11.4-16.0); Lymphocytes # (A) 2.2 k/uL (1.0-4.8); Lymphocytes % (A) 30 %; MCH 27.2 pg (25.0-35.0); MCHC 32.3 g/dL (31.0-37.0); MCV 84.1 fL (80.0-100.0); Mean Platelet Volume 7.4; Monocytes # (A) 0.4 k/uL (0-1.0); Monocytes % (A) 5 %; Neutrophils # (A) 4.2 k/uL (1.3-7.7); Neutrophils % (A) 57 %; Platelet Count 329 k/uL (150-450); RBC 4.58 m/uL (3.80-5.40); RDW 14.7 % (11.5-15.5); WBC 7.4 k/uL (3.8-10.6)
[2020-01-26] MEDS ORDERED: CEPHALEXIN 500MG STARTER PACK 4 CAP BTL PO STA (23:29)
[2020-01-26 23:55] VITALS: BP 118/62; PULSE 84; RESP 16
== END 2020-01-26 23:52 | disposition home or self-care (01) ==
LOC: EC 21:14
DX: N39.0 Urinary tract infection, site not specified (principal); F41.9 Anxiety disorder, unspecified; F31.9 Bipolar disorder, unspecified; I25.2 Old myocardial infarction; E11.9 Type 2 diabetes mellitus without complications; G25.81 Restless legs syndrome; Z79.84 Long term (current) use of oral hypoglycemic drugs; Z79.899 Other long term (current) drug therapy; Z95.5 Presence of coronary angioplasty implant and graft
CPT/HCPCS: 36415; 80053; 85025; 81001; 87086; 99284; 96374; 96375; 96361; J0696; J1885

== ENCOUNTER → 2020-04-10 | Outpatient (CLI) | payer OTHER ==
--- NOTE | 2020-04-11 14:40 | US ---
EXAMINATION TYPE: US kidneys/renal and bladder DATE OF EXAM: 04/10/2020 COMPARISON: 04/03/2018 CLINICAL HISTORY: 60-year-old female N39.0 UTI. TECHNIQUE: Multiple sonographic images of the kidneys and bladder are obtained. FINDINGS: EXAM MEASUREMENTS: Right Kidney: 12.6 x 4.3 x 4.5 cm Left Kidney: 12.0 x 5.0 x 4.8 cm with a 1.7 cm hypoechoic contour protuberance at the lower pole, pag e 30 of 38. Kidneys: No hydronephrosis on either side. Bladder: Mild circumferential wall thickening up to 8 to 9 mm. Incidental echogenic appearance to the visualized portions of the liver. IMPRESSION: 1. No hydronephrosis. 2. 1.7 cm cortical mass versus contour lobulation involving the lower pole of the left kidney. 3 nasir h follow-up ultrasound recommended to reassess. If persistent concern remains after the follow-up ex am, contrast enhanced CT or MRI evaluation should be considered. 4. Circumferential bladder wall thickening can be seen with cystitis. 5. Incidental hepatic steatosis.
== END | disposition home or self-care (01) ==
LOC: RADUSWWP 15:29
PROVIDERS: ATTEND Urology
DX: K76.0 Fatty (change of) liver, not elsewhere classified (principal); R93.41 Abnormal radiologic findings on diagnostic imaging of renal pelvis, ureter, or bladder
CPT/HCPCS: 76770

== ENCOUNTER → 2020-04-25 | Outpatient (CLI) | payer OTHER ==
--- NOTE | 2020-04-25 10:08 | CT ---
EXAMINATION TYPE: CT abdomen wo/w con DATE OF EXAM: 04/25/2020 HISTORY: Left renal mass CT DLP: 2036mGycm Automated Exposure Control for Dose Reduction was Utilized. CONTRAST: CT scan of the abdomen is performed with oral and without and with IV Contrast, patient injected with 100 ml mL of Isovue 300. COMPARISON: CT abdomen and pelvis May 11, 2018. Renal ultrasound April 10, 2020. FINDINGS: LUNG BASES: No significant abnormality is appreciated. LIVER/GB: Dependent small stones and/or gallbladder sludge. PANCREAS: No significant abnormality is seen. SPLEEN: No significant abnormality is seen. ADRENALS: No significant abnormality is seen. KIDNEYS: Noncontrast images show no renal calculi bilaterally. Postcontrast images show symmetric cor tical medullary uptake and excretion without concerning solid or cystic renal mass or hydronephrosis seen bilaterally. Particular attention to lower pole left kidney noted at area of ultrasound concern. BOWEL: Oral contrast does not reach level of terminal ileum. No suspicious small or large bowel dilat ation. LYMPH NODES: No greater than 1cm intra-abdominal lymph nodes are appreciated. OSSEOUS STRUCTURES: Grade 1 retrolisthesis of L5 on S1. Severe disc space narrowing with endplate scl erosis and vacuum disc phenomenon L5-S1 level. OTHER: No significant additional abnormality is seen. IMPRESSION: No suspicious solid or cystic renal mass in either kidney. Ultrasound findings favor lobu lated cortex lower pole left kidney.
== END | disposition home or self-care (01) ==
LOC: RADCTMAIN 07:23
PROVIDERS: ATTEND Urology
DX: D41.02 Neoplasm of uncertain behavior of left kidney (principal)
CPT/HCPCS: 82565; 84520; 74170; 36415; Q9967

== ENCOUNTER → 2020-10-02 | Outpatient (CLI) | payer BC ==
[2020-10-02 16:23] LABS: African American GFR (CKD) 81.1 (60.0-200.0); Albumin 4.8 g/dL (3.80-4.90); Albumin/Globulin Ratio 2.4 (1.60-3.17); Anion Gap 9.7 mmol/L (4.00-12.00); BUN/Creat Ratio 11.11 Ratio (12.00-20.00); Carbon Dioxide 26.3 mmol/L (21.6-31.8); Chol/HDL Ratio 4.17; Lithium 0.5 mmol/L (0.5-1.2); Potassium 4.5 mmol/L (3.5-5.5); Total Bilirubin 0.5 mg/dL (0.2-1.2); Total Protein 6.8 g/dL (6.2-8.2)
[2020-10-02 17:34] LABS: Hemoglobin A1C 5.9 % (4.0-6.0)
[2020-10-02 20:11] LABS: Urine Creatinine 118.2 mg/dL
== END | disposition home or self-care (01) ==
LOC: LABWHC1 08:31
PROVIDERS: ATTEND Family Medicine
DX: I10 Essential (primary) hypertension (principal); E11.9 Type 2 diabetes mellitus without complications; E78.00 Pure hypercholesterolemia, unspecified
CPT/HCPCS: 36415; 80053; 80061; 80178; 82043; 82570; 83036; 83721

== ENCOUNTER 2021-04-16 20:45 | Emergency (ER) | payer BC, OTHER ==
[2021-04-16 21:49] VITALS: BP 144/69; PULSE 101; RESP 18; TEMP 100.6
--- NOTE | 2021-04-16 21:51 | ED ---
URI HPI - General Stated Complaint: Fever,Upper Resp Time Seen by Provider: 04/16/21 21:47 - History of Present Illness Initial Comments: 61 year-old female patient presents for upper respiratory symptoms. Cough, congestion, body aches, and nausea. Symptoms started on Friday. Did take tylenol earlier today. Denies any chest pain or shortness of breath. Does feel tight in her chest. Denies vomiting or diarrhea. Denies any dizziness or weakness. She has been vaccinated for COVID-19. - Related Data Home Medications Medication Instructions Recorded Confirmed LORazepam [Ativan] 0.5 mg PO BID 06/12/17 01/26/20 buPROPion HCL [Wellbutrin SR] 150 mg PO BID 06/12/17 01/26/20 rOPINIRole HCL [Requip] 2 mg PO HS 06/12/17 01/26/20 Omeprazole [PriLOSEC] 20 mg PO BID 06/15/19 01/26/20 Ezetimibe [Zetia] 10 mg PO DAILY 01/04/20 01/26/20 Lisinopril-Hctz 20-12.5 mg 1 tab PO DAILY 01/04/20 01/26/20 [Zestoretic 20-12.5] [place] Carbonate 300 mg PO BID 01/04/20 01/26/20 metFORMIN HCL [Glucophage] 500 mg PO BID 01/04/20 01/26/20 Acetaminophen Tab [Tylenol] 1,500 mg PO ONCE PRN 01/26/20 01/26/20 valACYclovir HCL [Valtrex] 500 mg PO QAM 01/26/20 01/26/20 Previous Rx's Medication Instructions Recorded Aspirin 81 mg PO DAILY #30 chew 12/31/17 Atorvastatin [Lipitor] 80 mg PO HS #30 tab 12/31/17 Nitroglycerin Sl Tabs [Nitrostat] 0.4 mg SUBLINGUAL Q5M PRN #30 tab 12/31/17 carvediloL [Coreg] 6.25 mg PO BID-W/MEALS #60 tab 12/31/17 Cephalexin [Keflex] 500 mg PO Q6HR 7 Days #28 cap 01/26/20 Ketorolac [Toradol] 10 mg PO TID #10 tab 01/26/20 Phenazopyridine [Pyridium] 100 mg PO TID #9 tablet 01/26/20 Albuterol Sulfate [Proair Hfa] 1 - 2 puff INHALATION Q6HR PRN 04/17/21 #8.5 gm Azithromycin [Zithromax Z-pack (6 0 mg PO DIRECTED #6 tab 04/17/21 tabs)] guaiFENesin-DM 600/30MG [Mucinex 2 each PO Q12HR PRN #20 tab 04/17/21 Dm] Allergies Allergy/AdvReac Type Severity Reaction Status Date / Time No Known Allergies Allergy Verified 01/26/20 22:52 Review of Systems ROS Statement: Those systems with pertinent positive or pertinent negative responses have been documented in the HPI. ROS Other: All systems not noted in ROS Statement are negative. Past Medical History Past Medical History: Diabetes Mellitus Additional Past Medical History / Comment(s): restless leg, has cpap, UTI Last Myocardial Infarction Date:: 12/28/17 History of Any Multi-Drug Resistant Organisms: None Reported Past Surgical History: Back Surgery, Bladder Surgery, Heart Catheterization With Stent, Orthopedic Surgery, Tubal Ligation Additional Past Surgical History / Comment(s): bladder sling, colonoscopy, heart stent x2 Past Anesthesia/Blood Transfusion Reactions: No Reported Reaction Date of Last Stent Placement:: 01/03 Past Psychological History: Anxiety, Bipolar Smoking Status: Never smoker Past Alcohol Use History: Occasional Past Drug Use History: None Reported - Past Family History Mother Family Medical History: Cancer Additional Family Medical History / Comment(s): lung, colon Sister(s) Family Medical History: Cancer Additional Family Medical History / Comment(s): brain General Exam General appearance: alert, in no apparent distress ENT exam: Present: normal exam, normal oropharynx, mucous membranes moist Respiratory exam: Present: normal lung sounds bilaterally. Absent: respiratory distress, wheezes, rales, rhonchi, stridor Cardiovascular Exam: Present: normal rhythm, tachycardia, normal heart sounds. Absent: systolic murmur, diastolic murmur, rubs, gallop, clicks GI/Abdominal exam: Present: soft, normal bowel sounds. Absent: distended, tenderness, guarding, rebound, rigid Neurological exam: Present: alert, oriented X3, CN II-XII intact Psychiatric exam: Present: normal affect, normal mood Skin exam: Present: warm, dry, intact, normal color. Absent: rash Course Vital Signs 04/16/21 21:43 Temperature 100.6 F H Pulse Rate 101 H Respiratory 18 Rate Blood Pressure 144/69 O2 Sat by Pulse 98 Oximetry Medical Decision Making - Medical Decision Making 61-year-old female patient presents for evaluation of upper respiratory symptoms and cough. She has had low-grade fever in triage. Oxygen saturation is normal. She tested negative for COVID-19. She'll be started on antibiotics and inhaler. Given Mucinex for cough relief. She is instructed to follow-up with her primary care physician for recheck in 1-2 days. Return parameters were discussed in detail. She verbalizes understanding and agrees with this plan. My attending is Dr. Daley. - Lab Data Lab Results 04/16/21 Range/Units 21:50 Coronavirus (PCR) Not Detected (Not Detectd) - Radiology Data Radiology results: report reviewed, image reviewed Two-view x-ray of the chest is obtained. Report is reviewed in its entirety. Impression by Dr. Steen shows minimal left sided interstitial infiltrates. This appears new compared to old exam. Normal heart. Disposition Clinical Impression: Pneumonia Disposition: HOME SELF-CARE Condition: Good Instructions (If sedation given, give patient instructions): Pneumonia (ED) Additional Instructions: Take medications as directed. Follow-up with the primary care physician for recheck in 1-2 days. Return for any new, worsening, or concerning symptoms Prescriptions: guaiFENesin-DM 600/30MG [Mucinex Dm] 2 each PO Q12HR PRN #20 tab PRN Reason: Cough Albuterol Sulfate [Proair Hfa] 1 - 2 puff INHALATION Q6HR PRN #8.5 gm PRN Reason: Shortness Of Breath Azithromycin [Zithromax Z-pack (6 tabs)] 0 mg PO DIRECTED #6 tab Is patient prescribed a controlled substance at d/c from ED?: No Referrals: Jaye Bloom MD [Primary Care Provider] - 1-2 days Time of Disposition: 03:22
--- NOTE | 2021-04-16 22:28 | XR ---
EXAMINATION TYPE: XR chest 2V DATE OF EXAM: 04/16/2021 COMPARISON: 12/28/2017 HISTORY: Chest pain cough TECHNIQUE: 2 views FINDINGS: Heart and mediastinum are normal. There is some mild interstitial infiltrate in the left mi dlung. Right lung is clear. There are no hilar masses. There is no pleural effusion. IMPRESSION: Minimal left side interstitial infiltrates. This appears new compared to old exam. Normal heart.
[2021-04-17] MEDS ORDERED: ACETAMINOPHEN TAB 500 MG TAB PO STA (03:19)
[2021-04-17] MEDS ORDERED: guaiFENesin-DM 600/30MG 1 EACH TAB.ER.12H PO STA (03:20)
[2021-04-17] MEDS ORDERED: AZITHROMYCIN 500 MG TAB PO STA (03:20)
[2021-04-17] MEDS ORDERED: guaiFENesin-DM 100-10MG/5ML 10 ML CUP PO STA (03:43)
== END 2021-04-17 04:01 | disposition home or self-care (01) ==
LOC: EC 20:45
DX: J18.9 Pneumonia, unspecified organism (principal); E11.9 Type 2 diabetes mellitus without complications; F41.9 Anxiety disorder, unspecified; F31.9 Bipolar disorder, unspecified; Z72.89 Other problems related to lifestyle; Z79.82 Long term (current) use of aspirin; Z79.84 Long term (current) use of oral hypoglycemic drugs
CPT/HCPCS: 71046; 87635; 96372

== ENCOUNTER → 2021-06-22 | Outpatient (CLI) | payer BC | END | disposition home or self-care (01) | LOC: LABWHC1 11:09 | PROVIDERS: ATTEND Family Medicine | DX: U07.1 COVID-19 (principal) | CPT/HCPCS: U0003; C9803; U0005 ==

== ENCOUNTER → 2021-06-26 | Outpatient (CLI) | payer BC ==
[~2021-06-26] MED LIST changes: -LACTATED RINGERS 1,000 ML IV SCH; +SODIUM CHLORIDE 0.9% 50 ML IVPB NR; +SODIUM CHLORIDE 0.9% 500 ML 500 ML in EMPTY BAG 1 BAG IV PRN; +SOTROVIMAB (EUA) 500 MG in SODIUM CHLORIDE 0.9% 100 ML IVPB NR
[2021-06-26 13:21] VITALS: TEMP 98.5
[2021-06-26 13:59] VITALS: BP 111/70; PULSE 73; RESP 16
== END ==
LOC: PROCWHC3 13:04
PROVIDERS: ATTEND Family Medicine
DX: U07.1 COVID-19 (principal); E11.9 Type 2 diabetes mellitus without complications; I25.10 Atherosclerotic heart disease of native coronary artery without angina pectoris
CPT/HCPCS: 96360; Q0247; M0247

== ENCOUNTER 2021-06-29 10:13 | Emergency (ER) | payer BC ==
[2021-06-29 10:30] VITALS: RESP 20; TEMP 98
[2021-06-29] MEDS ORDERED: DIPH,PERTUS(ACELL)TETVAC-LF 0.5 ML VIAL IM ONE (11:48)
[2021-06-29] MEDS ORDERED: IBUPROFEN 800 MG TAB PO STA (11:56)
--- NOTE | 2021-06-29 12:01 | ED ---
General Adult HPI - General Chief complaint: Wound/Laceration Stated complaint: Rt Finger Lac Time Seen by Provider: 06/29/21 11:50 Source: patient, RN notes reviewed Mode of arrival: ambulatory Limitations: no limitations - History of Present Illness Initial comments: 61-year-old female, alert and oriented 4, presents to the emergency room after sustaining a injury to her right little finger. Patient states that she caught it on a shelf and the nail was ripped back tearing a portion of the nail off. She states there is pain with flexion of the little finger. Her tetanus is not up-to-date. -: hour(s) (2) Location: right, upper extremity Severity scale (1-10): 4 Quality: aching, constant Consistency: constant Improves with: immobilization Worsens with: movement Associated Symptoms: denies other symptoms Treatments Prior to Arrival: none - Related Data Home Medications Medication Instructions Recorded Confirmed LORazepam [Ativan] 0.5 mg PO BID 06/12/17 06/26/21 buPROPion HCL [Wellbutrin SR] 150 mg PO BID 06/12/17 06/26/21 rOPINIRole HCL [Requip] 2 mg PO HS 06/12/17 06/26/21 Omeprazole [PriLOSEC] 20 mg PO BID 06/15/19 06/26/21 Ezetimibe [Zetia] 10 mg PO DAILY 01/04/20 06/26/21 Lisinopril-Hctz 20-12.5 mg 1 tab PO DAILY 01/04/20 06/26/21 [Zestoretic 20-12.5] [place] Carbonate 300 mg PO BID 01/04/20 06/26/21 metFORMIN HCL [Glucophage] 500 mg PO BID 01/04/20 06/26/21 Acetaminophen Tab [Tylenol] 1,500 mg PO ONCE PRN 01/26/20 06/26/21 valACYclovir HCL [Valtrex] 500 mg PO QAM 01/26/20 06/26/21 Previous Rx's Medication Instructions Recorded Aspirin 81 mg PO DAILY #30 chew 12/31/17 Atorvastatin [Lipitor] 80 mg PO HS #30 tab 12/31/17 Nitroglycerin Sl Tabs [Nitrostat] 0.4 mg SUBLINGUAL Q5M PRN #30 tab 12/31/17 carvediloL [Coreg] 6.25 mg PO BID-W/MEALS #60 tab 12/31/17 Cephalexin [Keflex] 500 mg PO Q6HR 7 Days #28 cap 01/26/20 Ketorolac [Toradol] 10 mg PO TID #10 tab 01/26/20 Phenazopyridine [Pyridium] 100 mg PO TID #9 tablet 01/26/20 Albuterol Sulfate [Proair Hfa] 1 - 2 puff INHALATION Q6HR PRN 04/17/21 #8.5 gm Azithromycin [Zithromax Z-pack (6 0 mg PO DIRECTED #6 tab 04/17/21 tabs)] guaiFENesin-DM 600/30MG [Mucinex 2 each PO Q12HR PRN #20 tab 04/17/21 Dm] Cephalexin [Keflex] 500 mg PO Q6HR 7 Days #28 cap 06/29/21 Allergies Allergy/AdvReac Type Severity Reaction Status Date / Time No Known Allergies Allergy Verified 06/29/21 10:30 Review of Systems ROS Statement: Those systems with pertinent positive or pertinent negative responses have been documented in the HPI. ROS Other: All systems not noted in ROS Statement are negative. Past Medical History Past Medical History: Diabetes Mellitus Additional Past Medical History / Comment(s): restless leg, has cpap, UTI Last Myocardial Infarction Date:: 12/28/17 History of Any Multi-Drug Resistant Organisms: None Reported Past Surgical History: Back Surgery, Bladder Surgery, Heart Catheterization With Stent, Orthopedic Surgery, Tubal Ligation Additional Past Surgical History / Comment(s): bladder sling, colonoscopy, heart stent x2 Past Anesthesia/Blood Transfusion Reactions: No Reported Reaction Date of Last Stent Placement:: 01/03 Past Psychological History: Anxiety, Bipolar Smoking Status: Never smoker Past Alcohol Use History: Occasional Past Drug Use History: None Reported - Past Family History Mother Family Medical History: Cancer Additional Family Medical History / Comment(s): lung, colon Sister(s) Family Medical History: Cancer Additional Family Medical History / Comment(s): brain General Exam Limitations: no limitations General appearance: alert, in no apparent distress Eye exam: Present: normal appearance. Absent: scleral icterus, conjunctival injection Neurological exam: Present: alert, oriented X3 Psychiatric exam: Present: normal affect, normal mood Skin exam: Present: warm, dry, intact, normal color, other (Avulsion injury to the distal tip and partial fingernail of the little finger right hand). Absent: cyanosis, diaphoretic Course Vital Signs 06/29/21 06/29/21 10:27 13:18 Temperature 98 F Pulse Rate 88 68 Respiratory 20 20 Rate Blood Pressure 159/70 165/75 O2 Sat by Pulse 97 98 Oximetry Medical Decision Making - Medical Decision Making 61-year-old female presents with an injury to her right little finger today. She states she caught her nail on a shelf ripping the nail off . XR shows the distal phalanx suspicious for hairline fracture. Patient will be prescribed antibiotics and directed to follow up with her primary care doctor this week. Wound was irrigated with saline and dressed with a nonadherent dressing with a bulky gauze dressing and foam splint to protect the distal end. Case discussed with Dr. Sewell. Disposition Clinical Impression: Nail avulsion, finger, Finger fracture Disposition: HOME SELF-CARE Condition: Good Instructions (If sedation given, give patient instructions): Finger Fracture ( ED), Nail Avulsion (ED) Additional Instructions: Keep wound clean and dry, wear splint for comfort. Follow-up with your primary care doctor in 1 week. Take antibiotics as prescribed. Tylenol and or Motrin for pain. Prescriptions: Cephalexin [Keflex] 500 mg PO Q6HR 7 Days #28 cap Is patient prescribed a controlled substance at d/c from ED?: No Referrals: Jaye Bloom MD [Primary Care Provider] - 1-2 days Time of Disposition: 12:54
--- NOTE | 2021-06-29 12:37 | XR ---
EXAMINATION TYPE: XR finger RT DATE OF EXAM: 06/29/2021 COMPARISON: NONE HISTORY: Pain TECHNIQUE: Three views are submitted. FINDINGS: Severe narrowing of the DIP joint diffuse osteopenia. There appears to be lucency involving the tuft of the distal phalanx suspicious for hairline fracture with adjacent soft tissue edema. IMPRESSION: 1. Lucency involving the tuft distal phalanx suspicious for hairline fracture correlate clinically.
[2021-06-29] MEDS ORDERED: CEPHALEXIN 500 MG CAP PO STA (12:54)
[2021-06-29 13:20] VITALS: BP 165/75; PULSE 68
== END 2021-06-29 13:20 | disposition home or self-care (01) ==
LOC: EC 10:13
DX: S62.636A Displaced fracture of distal phalanx of right little finger, initial encounter for closed fracture (principal); S61.306A Unspecified open wound of right little finger with damage to nail, initial encounter; E11.9 Type 2 diabetes mellitus without complications; F41.9 Anxiety disorder, unspecified; F31.9 Bipolar disorder, unspecified; Z79.84 Long term (current) use of oral hypoglycemic drugs; Z79.82 Long term (current) use of aspirin; Z87.440 Personal history of urinary (tract) infections; Z98.51 Tubal ligation status; W22.8XXA Striking against or struck by other objects, initial encounter
CPT/HCPCS: 90471; 90715; 99283

== ENCOUNTER → 2022-01-23 | Outpatient (CLI) | payer BC ==
[2022-01-23 23:29] LABS: HCT 37.8 % (37.2-46.3); HGB 11.8 g/dL (12.0-15.0); MCH 27.9 pg (27.0-32.0); MCHC 31.2 g/dL (32.0-37.0); MCV 89.4 fL (80.0-97.0); Mean Platelet Volume 10.7 fL (9.5-12.2); NRBC Per 100 WBC 0 /100 WBCS (0.0-0.0); Platelet Count 383 X 10*3/uL (140-440); RBC 4.23 X 10*6/uL (4.10-5.20); RDW 14.4 % (11.5-14.5); WBC 10.53 X 10*3/uL (4.50-10.00)
[2022-01-23 23:47] LABS: African American GFR (CKD) 57.7 (60.0-200.0); Anion Gap 10.8 mmol/L (10.00-18.00); Blood Urea Nitrogen 12.6 mg/dL (9.0-27.0); Carbon Dioxide 23.7 mmol/L (20.0-27.5); Non-African American GFR(CKD) 49.7 (60.0-200.0); Potassium 4.3 mmol/L (3.5-5.5)
== END | disposition home or self-care (01) ==
LOC: LABWHC1 15:54
PROVIDERS: ATTEND Internal Medicine
DX: Z01.812 Encounter for preprocedural laboratory examination (principal); I25.10 Atherosclerotic heart disease of native coronary artery without angina pectoris; R07.9 Chest pain, unspecified; R06.00 Dyspnea, unspecified
CPT/HCPCS: 36415; 80051; 82565; 84520; 85027

== ENCOUNTER 2022-01-28 08:52 | Day surgery (SDC) | payer BC ==
[2022-01-24 09:19] VITALS: BMI 35.1
[~2022-01-28 08:52] MED LIST changes: +ALPRAZolam 0.25 MG TAB PO PRN; +ALPRAZolam 0.5 MG TAB PO PRN; +ASPIRIN 325 MG TAB PO STA; +NITROGLYCERIN SL TABS 0.4 MG TAB SUBLINGUAL PRN; +SODIUM CHLORIDE 0.9% 1,000 ML in EMPTY BAG 1 BAG IV ONE; -SODIUM CHLORIDE 0.9% 50 ML IVPB NR; -SODIUM CHLORIDE 0.9% 500 ML 500 ML in EMPTY BAG 1 BAG IV PRN; -SOTROVIMAB (EUA) 500 MG in SODIUM CHLORIDE 0.9% 100 ML IVPB NR
[2022-01-28 09:18] VITALS: RESP 18; TEMP 99
[2022-01-28 09:21] LABS: Glucose,Whole Blood 113 mg/dL (70-110)
[2022-01-28 09:32] LABS: Basophils % (A) 0 %; Eosinophils # (A) 0.4 k/uL (0-0.7); Eosinophils % (A) 4 %; HCT 36.6 % (34.0-46.0); HGB 12.4 gm/dL (11.4-16.0); Lymphocytes # (A) 1.8 k/uL (1.0-4.8); Lymphocytes % (A) 20 %; MCH 29.8 pg (25.0-35.0); MCHC 33.9 g/dL (31.0-37.0); MCV 87.8 fL (80.0-100.0); Mean Platelet Volume 7.7; Monocytes # (A) 0.5 k/uL (0-1.0); Monocytes % (A) 5 %; Neutrophils # (A) 6.1 k/uL (1.3-7.7); Neutrophils % (A) 69 %; Platelet Count 365 k/uL (150-450); RBC 4.17 m/uL (3.80-5.40); RDW 14.8 % (11.5-15.5); WBC 8.8 k/uL (3.8-10.6)
[2022-01-28] MEDS ORDERED: VERAPAMIL 2.5 MG/ML 2 ML AMP ONE (10:49)
[2022-01-28] MEDS ORDERED: fentaNYL (PF) 50 MCG/ML 2 ML AMP ONE (11:06)
[2022-01-28] MEDS ORDERED: fentaNYL (PF) 50 MCG/ML 2 ML AMP IV ONE (11:14)
[2022-01-28] MEDS ORDERED: LIDOCAINE 1% INJ 10MG/ML (30 ML VIAL-PF) SQ ONE (11:15)
[2022-01-28] MEDS ORDERED: MIDAZOLAM 2 MG/2 ML VIAL IV ONE (11:15)
[2022-01-28] MEDS ORDERED: VERAPAMIL SYRINGE (5 MG/10 ML) INTRAARTER ONE (11:18)
[2022-01-28] MEDS ORDERED: HEPARIN SODIUM 1,000 UN/ML (10ML VL) IV ONE (11:19)
[2022-01-28] MEDS ORDERED: IOPAMIDOL-370 125ML BTL INJ ONE (11:28)
[2022-01-28 16:16] VITALS: BP 116/62; PULSE 74
--- NOTE | 2022-01-28 23:20 | P.CARDCATH ---
Description of Procedure: PROCEDURES PERFORMED: Left heart catheterization, bilateral coronary angiography INDICATION: Abnormal stress test CONSENT:I have discussed the risks, benefits and alternative therapies for the above-mentioned procedure and for both sedation/analgesia as well as necessary blood product administration, if indicated, as they pertain to this patient. The patient has indicated understanding and acceptance of the risks and procedures discussed. PROCEDURE: After the risks, benefits and alternatives of the above mentioned procedure explained in detail with the patient, informed consent was obtained. Patient was taken to the catheterization lab and prepped and draped in usual fashion. 1% lidocaine was used to anesthetize the right radial artery. A 6- [place] sheath was placed in the right radial artery using modified Seldinger technique. Left coronary angiography was performed with a 5-[place] JL 3.5 catheter and right coronary angiography was performed with a 5-[place] JR5 catheter in various views. A 5-[place] FR5 catheter was inserted into the left ventricle and pressure measurements were obtained. The right radial sheath was removed and a TR band was placed with hemostasis achieved. The patient tolerated the procedure well. Patient was transported back to the post catheterization holding area in stable condition. Conscious Sedation: Patient was monitored under the direct supervision of vision of myself for conscious sedation using Versed and fentanyl for a total duration of 20 minutes HEMODYNAMICS: Aorta: 128/71 LV: 123/9, LVEDP 19 mmHg SELECTIVE CORONARY ARTERIOGRAPHY: LEFT MAIN: The left main is a large caliber vessel which bifurcates into the LAD and circumflex. There is no significant stenosis. LEFT ANTERIOR DESCENDING CORONARY ARTERY: LAD is a large caliber vessel which wraps around to the apex. There is a mid LAD stent which has a mid 20% instent stenosis and otherwise is normal. LEFT CIRCUMFLEX CORONARY ARTERY: Left circumflex is a moderate to large caliber vessel with mild luminal irregularities RIGHT CORONARY ARTERY: The right coronary artery is a large caliber vessel which gives off a PDA and PLV branch and is the dominant vessel. There are mild luminal irregularities. FINAL IMPRESSION: 1. CAD as described above with relatively normal coronary arteries other than a mid LAD stent with only mild 20% instent stenosis 2. Elevated left sided filling pressures PLAN: 1. Aggressive risk factor modification per most recent ACC/AHA guidelines. 2. Follow up in office in 1 week.
== END 2022-01-28 16:00 | disposition home or self-care (01) ==
LOC: CATHCVL 08:52
PROVIDERS: ATTEND Internal Medicine
DX: T82.855A Stenosis of coronary artery stent, initial encounter (principal); R94.39 Abnormal result of other cardiovascular function study; I25.10 Atherosclerotic heart disease of native coronary artery without angina pectoris; I25.2 Old myocardial infarction; E78.5 Hyperlipidemia, unspecified; Z20.822 Contact with and (suspected) exposure to COVID-19; E11.9 Type 2 diabetes mellitus without complications; F41.9 Anxiety disorder, unspecified; I10 Essential (primary) hypertension; Z87.19 Personal history of other diseases of the digestive system; Z82.49 Family history of ischemic heart disease and other diseases of the circulatory system; Z79.899 Other long term (current) drug therapy; Z79.82 Long term (current) use of aspirin
CPT/HCPCS: 93458; 85025; 87635; C1769; C1894; J2250; J2001; J3010; J1644; Q9967

== ENCOUNTER → 2022-04-14 | Outpatient (CLI) | payer BC ==
--- NOTE | 2022-04-14 08:47 | MR ---
EXAMINATION TYPE: MR knee RT wo con DATE OF EXAM: 04/14/2022 COMPARISON: None HISTORY: Right knee pain. TECHNIQUE: Multiplanar, multisequence imaging of the knee is performed without IV contrast. FINDINGS: Osseous structures are intact and there is no bone contusion or fracture. There is mild to moderate cartilaginous thinning in the medial compartment of the knee with marginal hypertrophic spurring. There are mild subchondral bony changes in the medial tibial plateau and media l femoral condyle. The findings are consistent with moderate osteoarthritic change. There is mild car tilaginous thinning and hypertrophic spurring in the patellofemoral compartment and lateral compartme nt indicating mild osteophytic change. There is a 4.2 x 2.1 x 1.2 cm septated Llanos's cyst cyst. There is a tiny joint effusion. The cruciate and collateral ligaments are intact. There is mucoid degeneration in the medial meniscus however there is a vertical tear in the body of t he medial meniscus best appreciated on the fat saturation proton density coronal images. The lateral meniscus is intact. IMPRESSION: 1. Vertical tear in the body of the medial meniscus, see above. 2. Tiny joint effusion and Llanos's cyst. 3. 3 compartment osteoarthritic changes in all 3 compartments of the knee, moderate in the medial co mpartment and mild in the patellofemoral and lateral compartments. 4. Intact cruciate and collateral ligaments.
== END | disposition home or self-care (01) ==
LOC: RADMRIMAIN 08:00
PROVIDERS: ATTEND Orthopaedic Surgery
DX: M17.11 Unilateral primary osteoarthritis, right knee (principal); M71.21 Synovial cyst of popliteal space [Baker], right knee; M25.461 Effusion, right knee; M23.303 Other meniscus derangements, unspecified medial meniscus, right knee; M25.561 Pain in right knee

== ENCOUNTER → 2022-06-03 | Outpatient (CLI) | payer BC ==
--- NOTE | 2022-06-03 15:21 | US ---
EXAMINATION TYPE: US kidneys/renal and bladder DATE OF EXAM: 06/03/2022 COMPARISON: 04/10/2020 CLINICAL HISTORY: R10.9 FLANK PAIN. Right flank pain EXAM MEASUREMENTS: Right Kidney: 11.1 x 4.2 x 5.3 cm Left Kidney: 12.0 x 5.0 x 4.5 cm Right Kidney: No hydronephrosis or masses seen Left Kidney: No hydronephrosis or masses seen Bladder: wnl Bilateral Jets seen: No There is no evidence for hydronephrosis at this point in time. No nephrolithiasis is seen. No lukas s are identified. The urinary bladder is anechoic. IMPRESSION: No hydronephrosis or nephrolithiasis.
== END | disposition home or self-care (01) ==
LOC: RADUSWWP 14:48
PROVIDERS: ATTEND Urology
DX: R10.9 Unspecified abdominal pain (principal)
CPT/HCPCS: 76770

== ENCOUNTER → 2022-06-14 | Outpatient (CLI) | payer BC ==
[2022-06-14 23:35] LABS: T4, Free (Free Thyroxine) 1.02 ng/dL (0.800-1.800)
== END | disposition home or self-care (01) ==
LOC: LABWHC1 13:49
PROVIDERS: ATTEND Psychiatry & Neurology Neurology
DX: R41.3 Other amnesia (principal)
CPT/HCPCS: 36415; 82306; 82607; 84439; 84443

== ENCOUNTER → 2022-06-14 | Outpatient (CLI) | payer BC ==
[2022-06-14 23:02] LABS: Basophils # (A) 0.04 X 10*3/uL (0.00-0.10); Basophils % (A) 0.6 %; Eosinophils # (A) 0.25 X 10*3/uL (0.04-0.35); Eosinophils % (A) 3.7 %; HCT 39.4 % (37.2-46.3); HGB 12.2 g/dL (12.0-15.0); Immature Grans, Automated 0.1 %; Lymphocytes # (A) 1.42 X 10*3/uL (0.90-5.00); Lymphocytes % (A) 21.2 %; MCH 29.3 pg (27.0-32.0); MCV 94.5 fL (80.0-97.0); Mean Platelet Volume 10.9 fL (9.5-12.2); Monocytes # (A) 0.59 X 10*3/uL (0.20-1.00); Monocytes % (A) 8.8 %; NRBC Per 100 WBC 0 /100 WBCS (0.0-0.0); Neutrophils # (A) 4.38 X 10*3/uL (1.80-7.70); Neutrophils % (A) 65.6 %; Platelet Count 395 X 10*3/uL (140-440); RBC 4.17 X 10*6/uL (4.10-5.20); RDW 13.5 % (11.5-14.5); WBC 6.69 X 10*3/uL (4.50-10.00)
[2022-06-14 23:08] LABS: Anion Gap 12.9 mmol/L (10.00-18.00); Carbon Dioxide 22.4 mmol/L (20.0-27.5); Potassium 4.4 mmol/L (3.5-5.5)
== END | disposition home or self-care (01) ==
LOC: LABPAT 13:45
PROVIDERS: ATTEND Orthopaedic Surgery
DX: Z01.812 Encounter for preprocedural laboratory examination (principal); M23.91 Unspecified internal derangement of right knee
CPT/HCPCS: 80051; 85025; 93005

== ENCOUNTER 2023-01-29 13:35 | Emergency (ER) | payer BC ==
[2023-01-29 14:02] VITALS: BP 108/70; PULSE 63; RESP 18; TEMP 97.6
[2023-01-29] MEDS ORDERED: ACETAMINOPHEN TAB 325 MG TAB PO STA (14:37)
--- NOTE | 2023-01-29 15:32 | ED ---
Fall HPI - General Chief Complaint: Fall Stated Complaint: Fall Time Seen by Provider: 01/29/23 14:28 Source: patient, RN notes reviewed Mode of arrival: ambulatory Limitations: no limitations - History of Present Illness Initial Comments: 63-year-old female presents emergency Department with chief complaint of trip and fall. Patient states that she get her feet tangled up states that she fell striking her face, knees on a hard surface. Patient had no loss conscious or tetanus up-to-date. She has a nasal abrasion, tenderness of her facial region. Patient complains of mild headache no loss conscious no significant complaints of neck pain. - Related Data Home Medications Medication Instructions Recorded Confirmed LORazepam [Ativan] 0.5 mg PO BID 06/12/17 01/28/22 buPROPion HCL [Wellbutrin SR] 150 mg PO BID 06/12/17 01/28/22 rOPINIRole HCL [Requip] 2 mg PO HS 06/12/17 01/28/22 Lisinopril-Hctz 20-12.5 mg 1 tab PO DAILY 01/04/20 01/24/22 [Zestoretic 20-12.5] [place] Carbonate 300 mg PO TID 01/04/20 01/28/22 valACYclovir HCL [Valtrex] 500 mg PO HS 01/26/20 01/28/22 Tirzepatide [Mounjaro] 2.5 mg SQ WEEKLY 01/24/22 06/20/22 Solifenacin Succinate 10 mg PO DAILY 06/20/22 06/20/22 Previous Rx's Medication Instructions Recorded Aspirin 81 mg PO DAILY #30 chew 12/31/17 Atorvastatin [Lipitor] 80 mg PO HS #30 tab 12/31/17 Nitroglycerin Sl Tabs [Nitrostat] 0.4 mg SUBLINGUAL Q5M PRN #30 tab 12/31/17 carvediloL [Coreg] 6.25 mg PO BID-W/MEALS #60 tab 12/31/17 HYDROcodone/APAP 5-325MG [[place] 1 tab PO Q6HR PRN #12 tab 06/20/22 5-325] Allergies Allergy/AdvReac Type Severity Reaction Status Date / Time No Known Allergies Allergy Verified 01/29/23 14:01 Review of Systems ROS Statement: Those systems with pertinent positive or pertinent negative responses have been documented in the HPI. ROS Other: All systems not noted in ROS Statement are negative. Past Medical History Past Medical History: Diabetes Mellitus Additional Past Medical History / Comment(s): restless leg, has cpap, UTI Last Myocardial Infarction Date:: 12/28/17 History of Any Multi-Drug Resistant Organisms: None Reported Past Surgical History: Back Surgery, Bladder Surgery, Heart Catheterization With Stent, Orthopedic Surgery, Tubal Ligation Additional Past Surgical History / Comment(s): bladder sling, colonoscopy, heart stent x2 Past Anesthesia/Blood Transfusion Reactions: No Reported Reaction Date of Last Stent Placement:: 01/03 Past Psychological History: Anxiety, Bipolar, Depression Smoking Status: Never smoker Past Alcohol Use History: Occasional Past Drug Use History: None Reported - Past Family History Mother Family Medical History: Cancer Additional Family Medical History / Comment(s): lung, colon Sister(s) Family Medical History: Cancer Additional Family Medical History / Comment(s): brain General Exam Limitations: no limitations General appearance: alert, in no apparent distress Head exam: Present: atraumatic, normocephalic, normal inspection Eye exam: Present: normal appearance, PERRL, EOMI. Absent: scleral icterus, conjunctival injection, periorbital swelling ENT exam: Present: normal exam, normal oropharynx, mucous membranes moist, TM's normal bilaterally, normal external ear exam, other (Nasal abrasion tenderness, dried epistaxis) Neck exam: Present: normal inspection, full ROM. Absent: tenderness, meningismus, lymphadenopathy Respiratory exam: Present: normal lung sounds bilaterally. Absent: respiratory distress, wheezes, rales, rhonchi, stridor Cardiovascular Exam: Present: regular rate, normal rhythm, normal heart sounds. Absent: systolic murmur, diastolic murmur, rubs, gallop, clicks Extremities exam: Present: normal inspection, full ROM, normal capillary refill. Absent: tenderness, pedal edema, joint swelling, calf tenderness Back exam: Present: normal inspection, full ROM. Absent: tenderness Neurological exam: Present: alert, oriented X3, CN II-XII intact, reflexes normal. Absent: motor sensory deficit Skin exam: Present: warm, dry, intact, normal color. Absent: rash Course Vital Signs 01/29/23 13:57 Temperature 97.6 F Pulse Rate 63 Respiratory 18 Rate Blood Pressure 108/70 O2 Sat by Pulse 94 L Oximetry Medical Decision Making - Medical Decision Making Was pt. sent in by a medical professional or institution (AMANDA Gomez, 2 YEAR OLDS PRESCHOOL TEACHER, urgent care, hospital, or group home...) When possible be specific @ -No Did you speak to anyone other than the patient for history (EMS, parent, family, police, friend...)? What history was obtained from this source @ -No Did you review nursing and triage notes (agree or disagree)? Why? @ -I reviewed and agree with nursing and triage notes Were old charts reviewed (outside hosp., previous admission, EMS record, old EKG, old radiological studies, urgent care reports/EKG's, group home records)? Report findings @ -No old charts were reviewed Differential Diagnosis (chest pain, altered mental status, abdominal pain women, abdominal pain men, vaginal bleeding, weakness, fever, dyspnea, syncope, headache, dizziness, GI bleed, back pain, seizure, CVA, palpatations, mental health, musculoskeletal)? @ -Intracranial hemorrhage, skull fracture, facial fracture, cervical fracture EKG interpreted by me (3pts min.). @ -None X-rays interpreted by me (1pt min.). @ -None done CT interpreted by me (1pt min.). @ -CT facial bones showing nuns nasal bone fracture, no other facial fractures CT brain, C-spine no intracranial hemorrhage no cervical fracture U/S interpreted by me (1pt. min.). @ -None done What testing was considered but not performed or refused? (CT, X-rays, U/S, labs)? Why? @ -None What meds were considered but not given or refused? Why? @ -None Did you discuss the management of the patient with other professionals (professionals i.e. , AMANDA, 2 YEAR OL[employer] PRESCHOOL TEACHER, lab, RT, psych nurse, social services technician, dish room worker, teacher, executive vice president and chief financial officer, pillowcase sewer)? Give summary @ -No Was smoking cessation discussed for >3mins.? @ -No Was critical care preformed (if so, how long)? @ -No Were there social determinants of health that impacted care today? How? (Homelessness, low income, unemployed, alcoholism, drug addiction, transportation, low edu. Level, literacy, decrease access to med. care, alf, rehab)? @ -No Was there de-escalation of care discussed even if they declined (Discuss DNR or withdrawal of care, Hospice)? DNR status @ -No What co-morbidities impacted this encounter? (DM, HTN, Smoking, COPD, CAD, Cancer, CVA, ARF, Chemo, Hep., AIDS, mental health diagnosis, sleep apnea, morbid obesity)? @ -None Was patient admitted / discharged? Hospital course, mention meds given and route, prescriptions, significant lab abnormalities, going to OR and other pertinent info. @ -Discharged patient has nasal bone fracture she has no other acute injuries is discharged in stable condition tetanus is up-to-date. Undiagnosed new problem with uncertain prognosis? @ -No Drug Therapy requiring intensive monitoring for toxicity (Heparin, Nitro, Insulin, Cardizem)? @ -No Were any procedures done? @ -No Diagnosis/symptom? @ -Fall, facial abrasion, nasal fracture Acute, or Chronic, or Acute on Chronic? @ -Acute Uncomplicated (without systemic symptoms) or Complicated (systemic symptoms)? @ -Uncomplicated Side effects of treatment? @ -No Exacerbation, Progression, or Severe Exacerbation? @ -No Poses a threat to life or bodily function? How? (Chest pain, [place], [place], pneumonia, PE, COPD, DKA, ARF, appy, cholecystitis, CVA, Diverticulitis, Homicidal, Suicidal, threat to staff... and all critical care pts) @ -No Disposition Clinical Impression: Fall, Nasal bone fracture Disposition: HOME SELF-CARE Condition: Stable Instructions (If sedation given, give patient instructions): Nasal Fracture (ED) Additional Instructions: Please return to the Emergency Department if symptoms worsen or any other concerns. Is patient prescribed a controlled substance at d/c from ED?: No Referrals: Jaye Bloom MD [Primary Care Provider] - 1-2 days Steve Mackay DO [Doctor of Osteopathic Medicine] - 1-2 days Time of Disposition: 16:29
--- NOTE | 2023-01-29 15:55 | CT ---
EXAMINATION TYPE: CT facial bones wo con DATE OF EXAM: 01/29/2023 COMPARISON: None HISTORY: Fall. Pain. CT DLP: 951 mGycm Automated exposure control for dose reduction was used. TECHNIQUE: CT scan of the sinuses is performed without contrast, axial images are obtained, coronal r eformatted images are also reviewed. FINDINGS: The paranasal sinuses including the frontal, ethmoid, sphenoid, and maxillary sinuses bila terally are well-aerated without minimal changes of chronic sinusitis. Nasal septal deviation noted.. The ostiomeatal complex is patent bilaterally on the coronal images. Visualized portion of mastoid air cells show no abnormal opacification. The globes are intact bilate rally. Hyperostosis variant. Nasal septal deviation. There is a linear lucency through the bridge of the wilman al bone. There is are multiple soft tissue nodules seen in the compartments of the neck compatible with shotty lymphadenopathy. IMPRESSION: 1. Linear lucency through the nasal bridge correlate for a nondepressed nasal bone fracture of indete rminate age.
--- NOTE | 2023-01-29 16:03 | CT ---
EXAMINATION TYPE: CT brain cspine wo con CT DLP: 951 mGycm, Automated exposure control for dose reduction was used. DATE OF EXAM: 01/29/2023 3:30 PM COMPARISON: Same day CT brain. CLINICAL INDICATION:Female, 63 years old with history of pain; Fall. TECHNIQUE: Brain: Multiple axial CT images of the brain were obtained without IV contrast. Cspine: Axial CT images from the skull base to the inferior aspect of T2 we obtained without intraven ous contrast. Coronal and sagittal reformatted images were also reviewed. FINDINGS: Brain: Extra-axial spaces: No abnormal extra-axial fluid collections. Ventricular system: Within normal limits Cerebral parenchyma: No acute intraparenchymal hemorrhage or mass effect. The novak-white junction is well differentiated. Cerebellum: Unremarkable. Mass effect: No evidence of midline shift. Intracranial vasculature: unremarkable Soft tissues: Normal. Calvarium/osseous structures: No depressed skull fracture. Cortical lucency through the nasal bone co mpatible with likely fracture. Paranasal sinuses and mastoid air cells: Clear. Visualized orbits: Orbital contents are intact. Cervical spine: Fracture: None. Osseous structures: Unremarkable Vertebral alignment: Within normal limits. Spinal canal/Neural Foramina: No evidence of significant spinal canal narrowing. No evidence for sign ificant neural foraminal stenosis. Neck soft tissues: Prevertebral soft tissues are within normal limits. Other: The airway is patent. Atherosclerosis of the carotid bifurcations. The lung apices appear isabella r. IMPRESSION: 1. No acute intracranial process. Please see dedicated CT facial for findings regarding the nasal dominic ne fracture. 2. No evidence of cervical spine fracture. 3. Mild multilevel degenerative disc disease.
== END 2023-01-29 16:43 | disposition home or self-care (01) ==
LOC: EC 13:35
DX: S02.2XXA Fracture of nasal bones, initial encounter for closed fracture (principal); E11.9 Type 2 diabetes mellitus without complications; F31.9 Bipolar disorder, unspecified; F41.9 Anxiety disorder, unspecified; I25.2 Old myocardial infarction; Z79.899 Other long term (current) drug therapy; Z79.624 Long term (current) use of inhibitors of nucleotide synthesis; W01.0XXA Fall on same level from slipping, tripping and stumbling without subsequent striking against object, initial encounter
CPT/HCPCS: 70450; 70486; 72125; 99284

== ENCOUNTER 2024-03-18 11:29 | Emergency (ER) | payer BC ==
[2024-03-18 11:37] VITALS: RESP 18
[2024-03-18] MEDS: ACETAMINOPHEN TAB 500 MG TAB PO STA (12:17)
--- NOTE | 2024-03-18 12:25 | ED ---
Upper Extremity HPI - General Chief Complaint: Extremity Injury, Upper Stated Complaint: Jeff. hand injury Time Seen by Provider: 03/18/24 11:45 Source: patient, RN notes reviewed Mode of arrival: ambulatory Limitations: no limitations - History of Present Illness Initial Comments: 64 year old female presents to the ED with chief complaint of bilateral 2nd-5th finger pain. She states that she was closing her garage door when her fingers became caught and crushed between joints. She reports pain is located between DIP and PIP joints bilaterally which is associated with tingling and decreased range of motion. She denies blood thinners, shortness of breath, and palpitations. MD Complaint: Injury to:: right - Related Data Home Medications Medication Instructions Recorded Confirmed LORazepam [Ativan] 0.5 mg PO BID 06/12/17 01/28/22 buPROPion HCL [Wellbutrin SR] 150 mg PO BID 06/12/17 01/28/22 rOPINIRole HCL [Requip] 2 mg PO HS 06/12/17 01/28/22 Lisinopril-Hctz 20-12.5 mg 1 tab PO DAILY 01/04/20 01/24/22 [Zestoretic 20-12.5] [place] Carbonate 300 mg PO TID 01/04/20 01/28/22 valACYclovir HCL [Valtrex] 500 mg PO HS 01/26/20 01/28/22 Tirzepatide [Mounjaro] 2.5 mg SQ WEEKLY 01/24/22 06/20/22 Solifenacin Succinate 10 mg PO DAILY 06/20/22 06/20/22 Previous Rx's Medication Instructions Recorded Aspirin 81 mg PO DAILY #30 chew 12/31/17 Atorvastatin [Lipitor] 80 mg PO HS #30 tab 12/31/17 Nitroglycerin Sl Tabs [Nitrostat] 0.4 mg SUBLINGUAL Q5M PRN #30 tab 12/31/17 carvediloL [Coreg] 6.25 mg PO BID-W/MEALS #60 tab 12/31/17 HYDROcodone/APAP 5-325MG [[employer] 1 tab PO Q6HR PRN #12 tab 06/20/22 5-325] Allergies Allergy/AdvReac Type Severity Reaction Status Date / Time No Known Allergies Allergy Verified 03/18/24 11:31 Review of Systems ROS Statement: Those systems with pertinent positive or pertinent negative responses have been documented in the HPI. ROS Other: All systems not noted in ROS Statement are negative. Past Medical History Past Medical History: Diabetes Mellitus Additional Past Medical History / Comment(s): restless leg, has cpap, UTI Last Myocardial Infarction Date:: 12/28/17 History of Any Multi-Drug Resistant Organisms: None Reported Past Surgical History: Back Surgery, Bladder Surgery, Heart Catheterization With Stent, Orthopedic Surgery, Tubal Ligation Additional Past Surgical History / Comment(s): bladder sling, colonoscopy, heart stent x2 Past Anesthesia/Blood Transfusion Reactions: No Reported Reaction Date of Last Stent Placement:: 01/03 Past Psychological History: Anxiety, Bipolar, Depression Smoking Status: Never smoker Past Alcohol Use History: Occasional Past Drug Use History: None Reported - Past Family History Mother Family Medical History: Cancer Additional Family Medical History / Comment(s): lung, colon Sister(s) Family Medical History: Cancer Additional Family Medical History / Comment(s): brain General Exam Limitations: no limitations General appearance: alert, in no apparent distress Head exam: Present: atraumatic, normocephalic, normal inspection Eye exam: Present: normal appearance, PERRL, EOMI. Absent: scleral icterus, conjunctival injection, periorbital swelling ENT exam: Present: normal exam, mucous membranes moist Neck exam: Present: normal inspection. Absent: tenderness, meningismus, lymphadenopathy Respiratory exam: Present: normal lung sounds bilaterally. Absent: respiratory distress, wheezes, rales, rhonchi, stridor Cardiovascular Exam: Present: regular rate, normal rhythm, normal heart sounds. Absent: systolic murmur, diastolic murmur, rubs, gallop, clicks Extremities exam: Present: normal inspection, full ROM, normal capillary refill. Absent: tenderness, pedal edema, joint swelling, calf tenderness Left Hand L/R Back: 1 - Ecchymosis, erythema, and swelling. 2 - Ecchymosis, erythema, and swelling. 3 - Ecchymosis, erythema, and swelling. 4 - Ecchymosis, erythema, and swelling. Back exam: Present: normal inspection Neurological exam: Present: alert, oriented X3, CN II-XII intact Psychiatric exam: Present: normal affect, normal mood Skin exam: Present: warm, dry, intact, normal color. Absent: rash Course Vital Signs 03/18/24 11:32 Temperature 98.9 F Pulse Rate 75 Respiratory 18 Rate Blood Pressure 119/66 O2 Sat by Pulse 98 Oximetry Medical Decision Making - Medical Decision Making Was pt. sent in by a medical professional or institution (, AMANDA, INFORMATION TECHNOLOGY ANALYST, urgent care, hospital, or prison...) When possible be specific @ -No Did you speak to anyone other than the patient for history (EMS, parent, family, police, friend...)? What history was obtained from this source @ -No Did you review nursing and triage notes (agree or disagree)? Why? @ -I reviewed and agree with nursing and triage notes Were old charts reviewed (outside hosp., previous admission, EMS record, old EKG, old radiological studies, urgent care reports/EKG's, prison records)? Report findings @ -No old charts were reviewed Differential Diagnosis (chest pain, altered mental status, abdominal pain women, abdominal pain men, vaginal bleeding, weakness, fever, dyspnea, syncope, headache, dizziness, GI bleed, back pain, seizure, CVA, palpatations, mental health, musculoskeletal)? @-Hand fracture, finger fracture, finger contusion EKG interpreted by me (3pts min.). @ -None X-rays interpreted by me (1pt min.). @ -X-ray bilateral hands shows no acute fracture , osteoarthritis noted. CT interpreted by me (1pt min.). @ -None done U/S interpreted by me (1pt. min.). @ -None done What testing was considered but not performed or refused? (CT, X-rays, U/S, labs)? Why? @ -None What meds were considered but not given or refused? Why? @ -None Did you discuss the management of the patient with other professionals (professionals i.e. AMANDA Gomez, INFORMATION TECHNOLOGY ANALYST, lab, RT, psych nurse, psychosocial rehabilitation counselor, section leader, teacher, business development officer, vocational case manager)? Give summary @ -No Was smoking cessation discussed for >3mins.? @ -No Was critical care preformed (if so, how long)? @ -No Were there social determinants of health that impacted care today? How? (H omelessness, low income, unemployed, alcoholism, drug addiction, transportation, low edu. Level, literacy, decrease access to med. care, residential, rehab)? @ -No Was there de-escalation of care discussed even if they declined (Discuss DNR or withdrawal of care, Hospice)? DNR status @ -No What co-morbidities impacted this encounter? (DM, HTN, Smoking, COPD, CAD, Cancer, CVA, ARF, Chemo, Hep., AIDS, mental health diagnosis, sleep apnea, morbid obesity)? @ -None Was patient admitted / discharged? Hospital course, mention meds given and route, prescriptions, significant lab abnormalities, going to OR and other pertinent info. @ -Discharged patient presented for bilateral hand injury, crush injury. P atient x-rays are negative for acute fracture patient is discharged in stable condition. Undiagnosed new problem with uncertain prognosis? @ -No Drug Therapy requiring intensive monitoring for toxicity (Heparin, Nitro, Insulin, Cardizem)? @ -No Were any procedures done? @ -No Diagnosis/symptom? @ -crush injury,finger contusions Acute, or Chronic, or Acute on Chronic? @ -acute Uncomplicated (without systemic symptoms) or Complicated (systemic symptoms)? @ -uncomplicated Side effects of treatment? @ -No Exacerbation, Progression, or Severe Exacerbation? @ -No Poses a threat to life or bodily function? How? (Chest pain, [place], [place], pneumonia, PE, COPD, DKA, ARF, appy, cholecystitis, CVA, Diverticulitis, Homicidal, Suicidal, threat to staff... and all critical care pts) @ -No Disposition Clinical Impression: Crushing injury of hand and fingers, Contusion of finger Disposition: HOME SELF-CARE Condition: Stable Instructions (If sedation given, give patient instructions): Crush Injury (ED) Additional Instructions: Please return to the Emergency Department if symptoms worsen or any other concerns. Is patient prescribed a controlled substance at d/c from ED?: No Referrals: Jaye Bloom MD [Primary Care Provider] - 1-2 days Time of Disposition: 12:53
--- NOTE | 2024-03-18 12:39 | XR ---
EXAMINATION TYPE: XR hand complete bilateral DATE OF EXAM: 03/18/2024 12:24 PM COMPARISON: None CLINICAL INDICATION: Female, 64 years old with history of Hand Injury; [facility] TECHNIQUE: XR hand complete bilateral Frontal, lateral and oblique views were obtained. FINDINGS: Normal alignment of the visualized joints. No acute osseous pathology is identified. No e vidence of soft tissue swelling. Multifocal degeneration changes with joint space narrowing and osteo phyte formation. IMPRESSION: 1. No acute osseous pathology bilaterally. 2. Multifocal osteoarthrosis throughout the joints of the hand. [facility], , 03/18/2024 12:37 PM
[2024-03-18] MEDS: ACET/COD 300 MG/30 MG STARTER PACK 6 TAB BTL PO STA (13:21)
[2024-03-18 13:26] VITALS: BP 115/72; PULSE 74; TEMP 98.7
== END 2024-03-18 13:26 | disposition home or self-care (01) ==
LOC: EC 11:29
CPT/HCPCS: 99283